=== PATIENT | female | born 1990 | race Caucasian/White ===

== ENCOUNTER 2018-07-02 20:24 | Emergency (ER) | payer MEDICAID ==
--- NOTE | 2018-07-02 21:02 | EDM.PDOC ---
ED HPI GENERAL MEDICAL PROBLEM - General Chief Complaint: Respiratory Problem Stated Complaint: PAIN LEFT CHEST/RIB/BACK, SINUS/COUGH Time Seen by Provider: 07/02/18 20:45 Source of Information: Reports: Patient, Old Records, RN History Limitations: Reports: No Limitations - History of Present Illness INITIAL COMMENTS - FREE TEXT/NARRATIVE: 27 yo smoking female here with a dry cough for over a week, and now some pleuritic L sided chest pain. No fever or SOB. No hx of asthma. Has some sinus congestion. Is taking Sudafed for her sx's. Has not been in to the clinic. Onset: Gradual Onset Date: 06/24/18 Duration: Week(s): (1+), Getting Worse Location: Reports: Face (sinuses), Chest Quality: Reports: Sharp (L chest), Stabbing Severity: Moderate Improves with: Reports: Other (not coughing) Worsens with: Reports: Breathing (deep or coughing) Context: Reports: Other (See HPI) Associated Symptoms: Reports: Chest Pain (L sided, sharp), Cough. 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: Musculoskeletal History: Reports: Back Pain, Chronic Neurological History: Reports: None Psychiatric History: Reports: Depression Endocrine/Metabolic History: Reports: Obesity/BMI 30+ - Infectious Disease History Infectious Disease History: Reports: None - Past Surgical History HEENT Surgical History: Reports: None GI Surgical History: Reports: Cholecystectomy, EGD, Hernia, Abdominal, Other ( See Below) Other GI Surgeries/Procedures: Abd hernia with mesh Endocrine Surgical History: Reports: None Neurological Surgical History: Reports: Discectomy Musculoskeletal Surgical History: Reports: None Social & Family History - Tobacco Use Smoking Status *Q: Never Smoker - Caffeine Use Caffeine Use: Reports: Coffee, Soda - Recreational Drug Use Recreational Drug Use: No ED ROS GENERAL - Review of Systems Review Of Systems: See Below Constitutional: Reports: No Symptoms HEENT: Reports: Rhinitis, Sinus Problem. Denies: Ear Pain, Throat Pain, Throat Swelling Respiratory: Reports: Pleuritic Chest Pain, Cough. Denies: Shortness of Breath , Wheezing, Sputum, Hemoptysis Cardiovascular: Reports: No Symptoms GI/Abdominal: Reports: No Symptoms : Reports: No Symptoms Musculoskeletal: Reports: No Symptoms Skin: Reports: No Symptoms Neurological: Reports: No Symptoms Psychiatric: Reports: No Symptoms ED EXAM, GENERAL - Physical Exam Exam: See Below Exam Limited By: No Limitations General Appearance: Alert, WD/WN, No Apparent Distress Eye Exam: Bilateral Eye: Normal Inspection Ears: Normal External Exam, Normal Canal, Hearing Grossly Normal, Normal TMs Ear Exam: Bilateral Ear: Auricle Normal, Canal Normal, TM normal Nose: Normal Inspection, Normal Mucosa, No Blood Throat/Mouth: Normal Inspection, Normal Lips, Normal Oropharynx, Normal Voice, No Airway Compromise Head: Atraumatic, Normocephalic Neck: Normal Inspection, Non-Tender Respiratory/Chest: No Respiratory Distress, No Accessory Muscle Use, Rhonchi ( faint on right). No: Wheezing Cardiovascular: Regular Rate, Rhythm, No Edema GI/Abdominal: Normal Bowel Sounds, Soft, Non-Tender, No Distention Back Exam: Normal Inspection. No: CVA Tenderness (R), CVA Tenderness (L) Extremities: Normal Inspection, Normal Range of Motion, Non-Tender, No Pedal Edema Neurological: Alert, Oriented, CN II-XII Intact, Normal Cognition, No Motor/ Sensory Deficits Psychiatric: Normal Affect, Normal Mood Skin Exam: Warm, Dry, Intact, Normal Color, No Rash Course - Vital Signs Last Recorded V/S: Last Vital Signs Temp 36.7 C 07/02/18 20:46 Pulse 84 07/02/18 20:46 Resp 16 07/02/18 20:46 BP 119/76 07/02/18 20:46 Pulse Ox 99 07/02/18 20:46 Departure - Departure Time of Disposition: 21:10 Disposition: Home, Self-Care 01 Condition: Fair Clinical Impression: Cough, Bronchitis, Tobacco abuse disorder - Discharge Information *PRESCRIPTION DRUG MONITORING PROGRAM REVIEWED*: No *COPY OF PRESCRIPTION DRUG MONITORING REPORT IN PATIENT ERIBERTO: No Instructions: Steps to Quit Smoking, [id number], Cough, Adult, [id number], Acute Bronchitis, Adult, [id number] Referrals: Maranda Ho CNM [Primary Care Provider] - Additional Instructions: Use azithromycin as directed until gone. Use Robitussin AC as needed for cough. Take ibuprofen or acetaminophen for pain relief. No smoking. Recheck in the clinic early next week. Return here as needed.
== END 2018-07-02 21:19 | disposition home or self-care (01) ==
LOC: JP.ED 20:24
DX: J40 Bronchitis, not specified as acute or chronic (principal); F17.210 Nicotine dependence, cigarettes, uncomplicated
CPT/HCPCS: 99283

== ENCOUNTER 2019-03-05 22:33 | Inpatient (IN) | payer MEDICAID ==
[2019-03-06] MEDS ORDERED: ePHEDrine 50 MG/ML SDV IVPUSH PRN ×2 (00:13)
[2019-03-06] MEDS ORDERED: Sodium Chloride 0.9% 10 ML Syringe FLUSH PRN (00:13)
[2019-03-06] MEDS ORDERED: Lactated Ringers 1,000 ML IV ONE (00:13)
[2019-03-06] MEDS ORDERED: diphenhydrAMINE 50 MG/ML SDV IVPUSH PRN ×2 (00:13)
[2019-03-06] MEDS ORDERED: Naloxone 0.4 MG/ML SDV IVPUSH PRN (00:13)
[2019-03-06] MEDS ORDERED: Calcium Carbonate 500 MG Tab.Chew PO PRN (00:13)
[2019-03-06] MEDS ORDERED: Ondansetron 4 MG/2 ML SDV IV PRN (00:13)
[2019-03-06] MEDS ORDERED: Ropivacaine 200 MG in Premix Bag 1 BAG EPIDUR SCH (00:15)
--- NOTE | 2019-03-06 00:25 | PCM.LDHP ---
L&D History of Present Illness - General Date of Service: 03/06/19 Admit Problem/Dx: Patient Status Order with Admit Dx/Problem 03/06/19 00:13 Patient Status [ADT] Routine Admission Diagnosis/Problem Admission Diagnosis/Problem Source of Information: Patient History Limitations: Reports: No Limitations - Related Data Allergies/Adverse Reactions: Allergies Allergy/AdvReac Type Severity Reaction Status Date / Time No Known Allergies Allergy Verified 07/02/18 20:42 Home Medications: Home Meds Acetaminophen [Tylenol Extra Strength] 1,000 mg PO ASDIRECTED PRN 07/02/18 [ History] Cetirizine HCl [Zyrtec] 10 mg PO DAILY 01/06/19 [History] #103/Iron Fumarate/Fa [ ] 1 tab PO DAILY 01/06/19 [ History] Sertraline [Zoloft] 100 mg PO DAILY 01/06/19 [History] Ursodiol 300 mg PO TID 01/06/19 [History] B6/mg/Turm/May/Anis/Gar/Gin/Sp [Morning Sickless Combo Pack] 1 cap PO DAILY PRN 01/07/19 [History] Docusate Sodium [Stool Softener] 100 mg PO DAILY PRN 03/02/19 [History] Past Medical History HEENT History: Reports: Impaired Vision Cardiovascular History: Reports: Other (See Below) Other Cardiovascular History: PIH Respiratory History: Reports: None Gastrointestinal History: Reports: Cholelithiasis, GERD, Hiatal Hernia, Other ( See Below) Other Gastrointestinal History: cholestasis during current Genitourinary History: Reports: None 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: , 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 Musculoskeletal History: Reports: Back Pain, Chronic Neurological History: Reports: None Psychiatric History: Reports: Anxiety, Depression Endocrine/Metabolic History: Reports: Obesity/BMI 30+, Vitamin D Deficiency Hematologic History: Reports: None Immunologic History: Reports: None Oncologic (Cancer) History: Reports: None Dermatologic History: Reports: None - Infectious Disease History Infectious Disease History: Reports: None - Past Surgical History HEENT Surgical History: Reports: None Cardiovascular Surgical History: Reports: None Respiratory Surgical History: Reports: None GI Surgical History: Reports: Cholecystectomy, EGD, Hernia, Abdominal, Other ( See Below) Other GI Surgeries/Procedures: Abd hernia with mesh Female Surgical History: Reports: None Endocrine Surgical History: Reports: None Neurological Surgical History: Reports: Discectomy Musculoskeletal Surgical History: Reports: Other (See Below) Other Musculoskeletal Surgeries/Procedures:: discectomy L4-S1 Social & Family History - Family History Cardiac: Reports: Afib Respiratory: Reports: Asthma, Other (See Below) Other Respiratory Family Hisory: pulmonary disease Psychiatric: Reports: Bipolar, Depression, Other (See Below) Other Psychiatric Family History: addiction Endocrine/Metabolic: Reports: Diabetes, type II - Tobacco Use Smoking Status *Q: Current Every Day Smoker Years of Tobacco use: 15 Packs/Tins Daily: 0.5 Used Tobacco, but Quit: No Second Hand Smoke Exposure: No - Caffeine Use Caffeine Use: Reports: Coffee - Recreational Drug Use Recreational Drug Use: No H&P Review of Systems - Review of Systems: Review Of Systems: See Below General: Reports: No Symptoms HEENT: Reports: No Symptoms Pulmonary: Reports: No Symptoms Cardiovascular: Reports: No Symptoms Gastrointestinal: Reports: No Symptoms Genitourinary: Reports: No Symptoms Musculoskeletal: Reports: No Symptoms Skin: Reports: Other (itching) Psychiatric: Reports: No Symptoms Neurological: Reports: No Symptoms Hematologic/Lymphatic: Reports: No Symptoms Immunologic: Reports: No Symptoms L&D Exam - Exam Exam: See Below - Vital Signs Vital Signs: Last Vital Signs Temp 36.8 C 03/05/19 22:46 Pulse 100 03/05/19 22:46 Resp 16 03/05/19 22:46 BP 119/72 03/05/19 22:46 Pulse Ox Weight: 92.079 kg - OB Specific Contraction Duration (sec): 60-80 Contraction Frequency (min): x2 Contraction Intensity: Mild Movement: Active Heart Tones: Present Heart Rate (FHR) Variability: Moderate (6-25 bmp) Presentation: Vertex - Castillo Score Castillo Score Cervix Position: Posterior Castillo Score Consistency: Soft Castillo Score Effacement: 51-70% Castillo Score Dilation: 1-2 cm Castillo Score Infant's Station: -2 Castillo Score Total: 6 - Exam General: Alert, Oriented HEENT: PERRLA, Conjunctiva Clear, EACs Clear, EOMI, Hearing Intact, Mucosa Moist & [place], Nares Patent, Normal Nasal Septum, Posterior Pharynx Clear, TMs Clear Neck: Supple, Trachea Midline Lungs: Clear to Auscultation, Normal Respiratory Effort Cardiovascular: Regular Rate, Regular Rhythm GI/Abdominal Exam: Normal Bowel Sounds, Soft, Non-Tender, No Organomegaly, No Distention, No Abnormal Bruit, No Mass, Pelvis Stable Rectal Exam: Normal Exam, Normal Rectal Tone Genitourinary: Normal external exam, Normal bimanual exam, Normal speculum exam Back Exam: Normal Inspection, Full Range of Motion Extremities: Normal Inspection, Normal Range of Motion, Non-Tender, No Pedal Edema, Normal Capillary Refill Skin: Warm, Dry, Intact Neurological: Cranial Nerves Intact, Reflexes Equal Bilateral Psychiatric: Alert, Normal Affect, Normal Mood - Patient Data Lab Results Last 24 hrs: Laboratory Results - last 24 hr 03/05/19 03/05/19 03/05/19 Range/Units 22:39 22:39 23:11 WBC (4.5-11.0) K/uL RBC (3.30-5.50) M/uL Hgb (12.0-15.0) g/dL Hct (36.0-48.0) % MCV (80-98) fL MCH (27-31) pg MCHC (32-36) % Plt Count (150-400) K/uL Neut % (Auto) (36-66) % Lymph % (Auto) (24-44) % [place] % (Auto) (2-6) % Eos % (Auto) (2-4) % Baso % (Auto) (0-1) % Sodium (140-148) mmol/L Potassium (3.6-5.2) mmol/L Chloride (100-108) mmol/L Carbon Dioxide (21-32) mmol/L Anion Gap (5.0-14.0) mmol/L BUN (7-18) mg/dL Creatinine (0.6-1.0) mg/dL Est Cr Clr Drug Dosing mL/min Estimated GFR (MDRD) (>60) Glucose (74-106) mg/dL Calcium (8.5-10.1) mg/dL Total Bilirubin (0.2-1.0) mg/dL AST (15-37) U/L ALT (12-78) U/L Alkaline Phosphatase (46-116) U/L Total Protein (6.4-8.2) g/dL Albumin (3.4-5.0) g/dL Globulin (2.3-3.5) g/dL Albumin/Globulin Ratio (1.2-2.2) Urine Color [place] A (YELLOW) Urine Appearance Clear (CLEAR) Urine pH 7.0 (5.0-8.0) Ur Specific [place] 1.025 (1.008-1.030) Urine Protein 30 H (NEGATIVE) mg/dL Urine Glucose (UA) Negative (NEGATIVE) mg/dL Urine Ketones Trace H (NEGATIVE) mg/dL Urine Occult Blood Negative (NEGATIVE) Urine Nitrite Negative (NEGATIVE) Urine Bilirubin Small H (NEGATIVE) Urine Urobilinogen 2.0 H (0.2-1.0) EU/dL Ur Leukocyte Esterase Negative (NEGATIVE) Urine RBC 0-5 (0-5) Urine WBC 0-5 (0-5) Ur Epithelial Cells Few Amorphous Sediment Few Urine Bacteria Few Urine Mucus Many Membrane Rupture Positive H (NEGATIVE) Urine Opiates Screen Negative (NEGATIVE) Ur Oxycodone Screen Negative (NEGATIVE) Urine Methadone Screen Negative (NEGATIVE) Ur Propoxyphene Screen Negative (NEGATIVE) Ur Barbiturates Screen Negative (NEGATIVE) Ur Tricyclics Screen Negative (NEGATIVE) Ur Phencyclidine Scrn Negative (NEGATIVE) Ur Amphetamine Screen Negative (NEGATIVE) U Methamphetamines Scrn Negative (NEGATIVE) Urine MDMA Screen Negative (NEGATIVE) U Benzodiazepines Scrn Negative (NEGATIVE) U Cocaine Metab Screen Negative (NEGATIVE) U Marijuana (THC) Screen Negative (NEGATIVE) 03/05/19 03/05/19 Range/Units 23:40 23:40 WBC 10.5 (4.5-11.0) K/uL RBC 3.62 (3.30-5.50) M/uL Hgb 11.2 L (12.0-15.0) g/dL Hct 33.7 L (36.0-48.0) % MCV 93 (80-98) fL MCH 31 (27-31) pg MCHC 33 (32-36) % Plt Count 186 (150-400) K/uL Neut % (Auto) 74 H (36-66) % Lymph % (Auto) 18 L (24-44) % [place] % (Auto) 7 H (2-6) % Eos % (Auto) 1 L (2-4) % Baso % (Auto) 0 (0-1) % Sodium 138 L (140-148) mmol/L Potassium 3.7 (3.6-5.2) mmol/L Chloride 103 (100-108) mmol/L Carbon Dioxide 24 (21-32) mmol/L Anion Gap 14.7 H (5.0-14.0) mmol/L BUN 10 (7-18) mg/dL Creatinine 0.7 (0.6-1.0) mg/dL Est Cr Clr Drug Dosing 110.01 mL/min Estimated GFR (MDRD) > 60 (>60) Glucose 112 H (74-106) mg/dL Calcium 9.1 (8.5-10.1) mg/dL Total Bilirubin 0.6 (0.2-1.0) mg/dL AST 15 (15-37) U/L ALT 16 (12-78) U/L Alkaline Phosphatase 173 H (46-116) U/L Total Protein 6.6 (6.4-8.2) g/dL Albumin 2.5 L (3.4-5.0) g/dL Globulin 4.1 H (2.3-3.5) g/dL Albumin/Globulin Ratio 0.6 L (1.2-2.2) Urine Color (YELLOW) Urine Appearance (CLEAR) Urine pH (5.0-8.0) Ur Specific [place] (1.008-1.030) Urine Protein (NEGATIVE) mg/dL Urine Glucose (UA) (NEGATIVE) mg/dL Urine Ketones (NEGATIVE) mg/dL Urine Occult Blood (NEGATIVE) Urine Nitrite (NEGATIVE) Urine Bilirubin (NEGATIVE) Urine Urobilinogen (0.2-1.0) EU/dL Ur Leukocyte Esterase (NEGATIVE) Urine RBC (0-5) Urine WBC (0-5) Ur Epithelial Cells Amorphous Sediment Urine Bacteria Urine Mucus Membrane Rupture (NEGATIVE) Urine Opiates Screen (NEGATIVE) Ur Oxycodone Screen (NEGATIVE) Urine Methadone Screen (NEGATIVE) Ur Propoxyphene Screen (NEGATIVE) Ur Barbiturates Screen (NEGATIVE) Ur Tricyclics Screen (NEGATIVE) Ur Phencyclidine Scrn (NEGATIVE) Ur Amphetamine Screen (NEGATIVE) U Methamphetamines Scrn (NEGATIVE) Urine MDMA Screen (NEGATIVE) U Benzodiazepines Scrn (NEGATIVE) U Cocaine Metab Screen (NEGATIVE) U Marijuana (THC) Screen (NEGATIVE) Result Diagrams: 03/05/19 23:40 03/05/19 23:40 - Problem List (1) High-risk SNOMED Code(s): 48860323 ICD Code: O09.90 - SUPERVISION OF HIGH RISK , UNSP, UNSP TRIMESTER Status: Acute Priority: High Current Visit: Yes Qualifiers: Trimester: third trimester Qualified Code(s): O09.93 - Supervision of high risk , unspecified, third trimester (2) Meconium in amniotic fluid SNOMED Code(s): 499588205 ICD Code: P96.83 - MECONIUM STAINING Status: Acute Priority: High Current Visit: Yes (3) SROM (spontaneous rupture of membranes) SNOMED Code(s): 975261920 ICD Code: ZZA6172 - Status: Acute Current Visit: Yes (4) Tobacco abuse disorder SNOMED Code(s): 708687904 ICD Code: Z72.0 - TOBACCO USE Status: Acute Current Visit: No (5) SNOMED Code(s): 15413549 ICD Code: Z34.90 - ENCNTR FOR SUPRVSN OF NORMAL , UNSP, UNSP TRIMESTER Status: Acute Current Visit: No Qualifiers: Weeks of gestation: 37 weeks Qualified Code(s): Z3A.37 - 37 weeks gestation of (6) Intrahepatic cholestasis of in third trimester SNOMED Code(s): 298049139, 317426079 ICD Code: O26.613 - LIVER AND BILIARY TRACT DISORD IN , THIRD TRIMESTER; K83.1 - OBSTRUCTION OF BILE DUCT Status: Acute Priority: High Current Visit: No Problem List Initiated/Reviewed/Updated: Yes Orders Last 24hrs: Active Orders 24 hr Category Date Time Status Patient Status [ADT] Routine ADT 03/06/19 00:13 Ordered Ambulate [RC] PER UNIT ROUTINE Care 03/06/19 00:13 Ordered Communication Order [RC] ASDIRECTED Care 03/06/19 00:13 Ordered Communication Order [RC] ASDIRECTED Care 03/06/19 00:14 Ordered Communication Order [RC] ROUTINE Care 03/06/19 00:14 Ordered Communication Order [RC] ROUTINE Care 03/06/19 00:14 Ordered Communication Order [RC] ROUTINE Care 03/06/19 00:14 Ordered Heart Tones [RC] PER UNIT ROUTINE Care 03/06/19 00:13 Ordered Non Stress Test [RC] Click to Edit Care 03/06/19 00:14 Ordered Insert Urinary Catheter [OM.PC] ASDIRECTED Care 03/06/19 00:15 Ordered Local Anesthetic Infusion Pump [RC] ASDIRECTED Care 03/06/19 00:14 Ordered May Shower [RC] ASDIRECTED Care 03/06/19 00:13 Ordered Notify Provider Vital Signs [RC] PRN Care 03/06/19 00:13 Ordered Notify Provider [RC] PRN Care 03/06/19 00:13 Ordered OB Check [OM.PC] Click to Edit Care 03/05/19 22:38 Ordered Oxygen Therapy [RC] ASDIRECTED Care 03/06/19 00:14 Ordered PCEA Epidural [RC] ASDIRECTED Care 03/06/19 00:14 Ordered PCEA Epidural [RC] ASDIRECTED Care 03/06/19 00:14 Ordered PCEA Epidural [RC] ASDIRECTED Care 03/06/19 00:14 Ordered Peripheral IV Care [RC] . DIRECTED Care 03/06/19 00:14 Ordered Pulse Oximetry [RC] ASDIRECTED Care 03/06/19 00:14 Ordered Up ad Latha [RC] ASDIRECTED Care 03/06/19 00:13 Ordered Urinary Catheter Assessment [RC] ASDIRECTED Care 03/06/19 00:14 Ordered VTE/DVT Education [RC] DAILY Care 03/06/19 00:13 Ordered Vital Signs [RC] PER UNIT ROUTINE Care 03/06/19 00:13 Ordered Vital Signs [RC] PER UNIT ROUTINE Care 03/06/19 00:14 Ordered Regular Diet [DIET] Diet 03/06/19 Breakfast Ordered LACTATE DEHYDROGENASE,LDH [CHEM] Routine Lab 03/05/19 23:32 Ordered Calcium Carbonate [Tums] Med 03/06/19 00:13 Ordered 1,000 mg PO Q2HR PRN Lactated Ringers [Ringers, Lactated] 1,000 ml Med 03/06/19 00:13 Ordered IV .BOLUS Naloxone [Narcan] Med 03/06/19 00:13 Ordered 0.1 mg IVPUSH ASDIRECTED PRN Ondansetron [Zofran] Med 03/06/19 00:13 Ordered 4 mg IV Q4H PRN Ropivacaine [Naropin 0.2%] 200 mg Med 03/06/19 00:15 Ordered Premix Bag 1 bag EPIDUR ASDIRECTED Sodium Chloride 0.9% [Saline Flush] Med 03/06/19 00:13 Ordered 10 ml FLUSH ASDIRECTED PRN diphenhydrAMINE [Benadryl] Med 03/06/19 00:13 Ordered 25 mg IVPUSH Q6H PRN diphenhydrAMINE [Benadryl] Med 03/06/19 00:13 Ordered 50 mg IVPUSH Q6H PRN ePHEDrine [ePHEDrine sulfate] Med 03/06/19 00:13 Ordered 10 mg IVPUSH ASDIRECTED PRN ePHEDrine [ePHEDrine sulfate] Med 03/06/19 00:13 Ordered 10 mg IVPUSH ASDIRECTED PRN DVT/VTE Prophylaxis Reflex [OM.PC] Routine Oth 03/06/19 00:13 Ordered Epidural Catheter Management [OM.PC] Routine Oth 03/06/19 00:14 Ordered Epidural Catheter Management [OM.PC] Urgent Oth 03/06/19 00:14 Ordered Peripheral IV Insertion Pediatric [OM.PC] Routine Oth 03/06/19 00:14 Ordered Saline Lock Insert [OM.PC] Routine Oth 03/06/19 00:13 Ordered Resuscitation Status Routine Resus Stat 03/06/19 00:13 Ordered Medication Orders Calcium Carbonate/Glycine (Tums) 1,000 mg PO Q2HR PRN PRN Reason: Indigestion Diphenhydramine HCl (Benadryl) 25 mg IVPUSH Q6H PRN PRN Reason: Itching Diphenhydramine HCl (Benadryl) 50 mg IVPUSH Q6H PRN PRN Reason: Itching Ephedrine Sulfate (Ephedrine Sulfate) 10 mg IVPUSH ASDIRECTED PRN PRN Reason: Hypotension Ephedrine Sulfate (Ephedrine Sulfate) 10 mg IVPUSH ASDIRECTED PRN PRN Reason: Hypotension Lactated Ringer's (Ringers, Lactated) 1,000 mls @ 999 mls/hr IV .BOLUS ONE Stop: 03/06/19 01:13 Ropivacaine 200 mg/ Premix 100 mls @ 0 mls/hr EPIDUR ASDIRECTED DANIEL Naloxone HCl (Narcan) 0.1 mg IVPUSH ASDIRECTED PRN PRN Reason: Oversedation Ondansetron HCl (Zofran) 4 mg IV Q4H PRN PRN Reason: Nausea/Vomiting Sodium Chloride (Saline Flush) 10 ml FLUSH ASDIRECTED PRN PRN Reason: Keep Vein Open Assessment/Plan Comment:: 03/06/2019 28 yo came in late yesterday evening after suspected SROM at home She now states she had green discharge mucous and more yesterday also but does not believe she was ruptured then She is 37 1/7 gestational weeks today Amnisure was positive and fluid was meconium stained Contractions irregular and sporadic SVE-2/70/-2-posterior FHTs category one She has been being treated and watched for ICP during this She has a history of ICP in previous pregnancies Bile salts have been stable-Mondays was 9.0 AST-15, ALT-16 Other labs-O positive, GBS negative, Hep B neg, Hep C neg, HIV neg, RPR nonreactive Plan- Will continue to monitor for active labor Will continue to monitor FHTs If no active labor by 0500 will initiate pitocin per protocol Will start antibiotic prophylaxis since possible PROM Once in active labor pattern may have an epidural for pain management per patient request Plan and anticipate a vaginal delivery
[2019-03-06] MEDS ORDERED: Penicillin G Potassium 5 MILLUNITS in Sodium Chloride 0.9% 50 ML IV ONE (00:30)
[2019-03-06] MEDS: Penicillin G Potassium 2.5 MILLUNITS in Sodium Chloride 0.9% 50 ML IV SCH ×5 (04:38→20:35)
--- NOTE | 2019-03-06 08:03 | PCM.PNLD ---
Labor Progress Note - VS & Meds Vital Signs: Last Vital Signs Temp 36.3 C 03/06/19 06:20 Pulse 81 03/06/19 06:58 Resp 16 03/06/19 06:58 BP 114/67 03/06/19 06:58 Pulse Ox 95 03/06/19 06:58 Active Medications: Current Medications Calcium Carbonate/Glycine (Tums) 1,000 mg PO Q2H PRN PRN Reason: Indigestion Diphenhydramine HCl (Benadryl) 25 mg IVPUSH Q6H PRN PRN Reason: Itching Diphenhydramine HCl (Benadryl) 50 mg IVPUSH Q6H PRN PRN Reason: Itching Ephedrine Sulfate (Ephedrine Sulfate) 10 mg IVPUSH ASDIRECTED PRN PRN Reason: Hypotension Ropivacaine 200 mg/ Premix 100 mls @ 0 mls/hr EPIDUR ASDIRECTED DANIEL Oxytocin/Sodium Chloride (Pitocin In Ns 20 Units/1,000 Ml) 20 unit in 1,000 mls @ 6 mls/hr IV TITRATE DANIEL; Protocol Last Titration: 03/06/19 07:47 Dose: 9 mls/hr Penicillin G Potassium 2.5 (millunits/ Sodium Chloride) 50 mls @ 100 mls/hr IV Q4H DANIEL Last Admin: 03/06/19 04:38 Dose: 100 mls/hr Naloxone HCl (Narcan) 0.1 mg IVPUSH ASDIRECTED PRN PRN Reason: Oversedation Ondansetron HCl (Zofran) 4 mg IV Q4H PRN PRN Reason: Nausea/Vomiting Sodium Chloride (Saline Flush) 10 ml FLUSH ASDIRECTED PRN PRN Reason: Keep Vein Open Discontinued Medications Lactated Ringer's (Ringers, Lactated) 1,000 mls @ 999 mls/hr IV .BOLUS ONE Stop: 03/06/19 01:13 Last Admin: 03/06/19 00:20 Dose: 999 mls/hr Penicillin G Potassium 5 (millunits/ Sodium Chloride) 50 mls @ 100 mls/hr IV ONETIME ONE Stop: 03/06/19 00:59 Last Admin: 03/06/19 01:20 Dose: 100 mls/hr - Uterine Contractions Uterine Monitoring Mode: External [place] Contraction Frequency (min): 3.5-6 Contraction Duration (sec): 40-120 Uterine Resting Tone: Soft - Monitoring Monitor Mode: External Ultrasound Heart Rate (FHR) Baseline: 120 Heart Rate (FHR) Variability: Moderate (6-25 bmp) Accelerations: Present, 15x15 Decelerations: None Strip Review: Category I - Vaginal Exam Dilation (cm): 4 Effacement (Percent): 70 Station: -2 Cervical Position: Posterior Sterile Vaginal Exam Performed By: Francesca Eddy - Labor Progress (Free Text) Labor Progress: 03/06/19 Patient slept well through the night. Pitocin was started this am and is currently at 2 mu with irregular contractions that palpate mild to moderate. SVE now is the same as 0445 at /-2 and posterior cervix. The cervix is nice and soft. She continues to have moderate thick meconium fluid leaking. FHT's baseline 120 with moderate variability and accelerations with no decelerations. Category 1 tracing. Good movement. I have reviewed all of her lab work. Arlette was a planned induction of labor tomorrow for intrahepatic cholestasis in . There is question as to if she had been ruptured since before last evening as she states she leaked mucous that was sometimes greenish through out the week. Assessment: at 37 2/7 with SROM Category 1 tracing No labor established, patient not feeling contractions ICP of Meconium stained fluid, moderate thickness Plan: Plan is to increase Pitocin slowly today, I plan on 2 mu every 45 minutes, may be adjusted based off of assessment Continuous monitoring, notify provider immediately of any decelerations or minimal variability Frequent position changes, ball, walking in oneal A conversation was had with patient about her high risk diagnosis of ICP in and the thick meconium fluid and needing to watch baby closely for s/ s of distress. She understands and is aware that if the baby does not tolerate this induction of labor that there is a possibility of section, the patient understands and all questions are answered.
--- NOTE | 2019-03-06 10:32 | PCM.PNLD ---
Labor Progress Note - VS & Meds Vital Signs: Last Vital Signs Temp 36.3 C 03/06/19 09:00 Pulse 90 03/06/19 09:00 Resp 16 03/06/19 09:00 BP 104/61 03/06/19 09:00 Pulse Ox 96 03/06/19 09:00 Active Medications: Current Medications Calcium Carbonate/Glycine (Tums) 1,000 mg PO Q2H PRN PRN Reason: Indigestion Diphenhydramine HCl (Benadryl) 25 mg IVPUSH Q6H PRN PRN Reason: Itching Diphenhydramine HCl (Benadryl) 50 mg IVPUSH Q6H PRN PRN Reason: Itching Ephedrine Sulfate (Ephedrine Sulfate) 10 mg IVPUSH ASDIRECTED PRN PRN Reason: Hypotension Ropivacaine 200 mg/ Premix 100 mls @ 0 mls/hr EPIDUR ASDIRECTED DANIEL Oxytocin/Sodium Chloride (Pitocin In Ns 20 Units/1,000 Ml) 20 unit in 1,000 mls @ 6 mls/hr IV TITRATE DANIEL; Protocol Last Titration: 03/06/19 10:17 Dose: 12 mls/hr Penicillin G Potassium 2.5 (millunits/ Sodium Chloride) 50 mls @ 100 mls/hr IV Q4H DANIEL Last Admin: 03/06/19 08:55 Dose: 100 mls/hr Naloxone HCl (Narcan) 0.1 mg IVPUSH ASDIRECTED PRN PRN Reason: Oversedation Ondansetron HCl (Zofran) 4 mg IV Q4H PRN PRN Reason: Nausea/Vomiting Sodium Chloride (Saline Flush) 10 ml FLUSH ASDIRECTED PRN PRN Reason: Keep Vein Open Discontinued Medications Lactated Ringer's (Ringers, Lactated) 1,000 mls @ 999 mls/hr IV .BOLUS ONE Stop: 03/06/19 01:13 Last Admin: 03/06/19 00:20 Dose: 999 mls/hr Penicillin G Potassium 5 (millunits/ Sodium Chloride) 50 mls @ 100 mls/hr IV ONETIME ONE Stop: 03/06/19 00:59 Last Admin: 03/06/19 01:20 Dose: 100 mls/hr - Uterine Contractions Uterine Monitoring Mode: External [place] (difficulty picking contractions up, pt starting to feel them) Contraction Frequency (min): irregular Contraction Duration (sec): 40-110 Contraction Intensity: Mild Uterine Resting Tone: Soft - Monitoring Monitor Mode: External Ultrasound Heart Rate (FHR) Baseline: 120 Heart Rate (FHR) Variability: Moderate (6-25 bmp) Accelerations: Present, 15x15 Decelerations: None Strip Review: Category I - Vaginal Exam Dilation (cm): 4.5-5 Effacement (Percent): 80 Station: -2 Cervical Position: Posterior Sterile Vaginal Exam Performed By: Aislinn Cooper Vaginal Exam Comment: Green Meconium noted - Labor Progress (Free Text) Labor Progress: 03/06/19 Patient has progressed slightly to 4.5-5 cm/80/-2. We will continue to increase Pitocin as needed. Encouraging her to walk now. If we continue to have poor reading of her contraction pattern we will consider an IUPC. Pt tolerating contractions without pain still, she does feel them more. Plan is for epidural once in active labor.
--- NOTE | 2019-03-06 13:12 | PCM.PNLD ---
Labor Progress Note - VS & Meds Vital Signs: Last Vital Signs Temp 36.3 C 03/06/19 09:00 Pulse 90 03/06/19 09:00 Resp 16 03/06/19 09:00 BP 104/61 03/06/19 09:00 Pulse Ox 96 03/06/19 09:00 Active Medications: Current Medications Calcium Carbonate/Glycine (Tums) 1,000 mg PO Q2H PRN PRN Reason: Indigestion Diphenhydramine HCl (Benadryl) 25 mg IVPUSH Q6H PRN PRN Reason: Itching Diphenhydramine HCl (Benadryl) 50 mg IVPUSH Q6H PRN PRN Reason: Itching Ephedrine Sulfate (Ephedrine Sulfate) 10 mg IVPUSH ASDIRECTED PRN PRN Reason: Hypotension Ropivacaine 200 mg/ Premix 100 mls @ 0 mls/hr EPIDUR ASDIRECTED DANIEL Oxytocin/Sodium Chloride (Pitocin In Ns 20 Units/1,000 Ml) 20 unit in 1,000 mls @ 6 mls/hr IV TITRATE DANIEL; Protocol Last Titration: 03/06/19 12:58 Dose: 8 munits/min, 24 mls/hr Penicillin G Potassium 2.5 (millunits/ Sodium Chloride) 50 mls @ 100 mls/hr IV Q4H DANIEL Last Admin: 03/06/19 08:55 Dose: 100 mls/hr Naloxone HCl (Narcan) 0.1 mg IVPUSH ASDIRECTED PRN PRN Reason: Oversedation Ondansetron HCl (Zofran) 4 mg IV Q4H PRN PRN Reason: Nausea/Vomiting Sodium Chloride (Saline Flush) 10 ml FLUSH ASDIRECTED PRN PRN Reason: Keep Vein Open Discontinued Medications Lactated Ringer's (Ringers, Lactated) 1,000 mls @ 999 mls/hr IV .BOLUS ONE Stop: 03/06/19 01:13 Last Admin: 03/06/19 00:20 Dose: 999 mls/hr Penicillin G Potassium 5 (millunits/ Sodium Chloride) 50 mls @ 100 mls/hr IV ONETIME ONE Stop: 03/06/19 00:59 Last Admin: 03/06/19 01:20 Dose: 100 mls/hr - Uterine Contractions Uterine Monitoring Mode: External [place] Contraction Frequency (min): 5-8 Contraction Duration (sec): 50-120 Contraction Intensity: Mild Uterine Resting Tone: Soft - Monitoring Monitor Mode: External Ultrasound Heart Rate (FHR) Baseline: 120 Heart Rate (FHR) Variability: Moderate (6-25 bmp) Accelerations: Present, 15x15 Decelerations: None Strip Review: Category I - Vaginal Exam Dilation (cm): 4.5-5 Effacement (Percent): 80 Station: -2 Cervical Position: Posterior Sterile Vaginal Exam Performed By: Aislinn Cooper Vaginal Exam Comment: Green Meconium noted - Labor Progress (Free Text) Labor Progress: 03/06/19 Cervix remains unchanged from check around 1030 am. Contractions are difficult to picker with the toco and given we have not had cervical change despite increasing pitocin, an IUPC was inserted. Informed consent with patient, she agrees to this procedure. Given the category 1 tracing and the lack of contractions we will increase pitocin 2 mu every 30 minutes again and will reassess each time. The first few contractions on IUPC measure 10-15 mvu's each. Goal is to have MVU's over 200 in a 10 minute period of time. Meconium stained fluid with white particulate matter is seen.
[2019-03-06] MEDS ORDERED: Lactated Ringers 1,000 ML IV SCH (16:00)
[2019-03-06] MEDS ORDERED: Ropivacaine 100 ML ONE (16:45)
--- NOTE | 2019-03-06 17:28 | PCM.PNLD ---
Labor Progress Note - VS & Meds Vital Signs: Last Vital Signs Temp 36.1 C 03/06/19 12:40 Pulse 67 03/06/19 12:40 Resp 16 03/06/19 12:40 BP 118/66 03/06/19 12:40 Pulse Ox 93 L 03/06/19 12:40 Active Medications: Current Medications Calcium Carbonate/Glycine (Tums) 1,000 mg PO Q2H PRN PRN Reason: Indigestion Diphenhydramine HCl (Benadryl) 25 mg IVPUSH Q6H PRN PRN Reason: Itching Diphenhydramine HCl (Benadryl) 50 mg IVPUSH Q6H PRN PRN Reason: Itching Ephedrine Sulfate (Ephedrine Sulfate) 10 mg IVPUSH ASDIRECTED PRN PRN Reason: Hypotension Ropivacaine 200 mg/ Premix 100 mls @ 0 mls/hr EPIDUR ASDIRECTED DANIEL Oxytocin/Sodium Chloride (Pitocin In Ns 20 Units/1,000 Ml) 20 unit in 1,000 mls @ 6 mls/hr IV TITRATE DANIEL; Protocol Last Titration: 03/06/19 16:41 Dose: 42 mls/hr Penicillin G Potassium 2.5 (millunits/ Sodium Chloride) 50 mls @ 100 mls/hr IV Q4H DANIEL Last Admin: 03/06/19 16:51 Dose: 100 mls/hr Lactated Ringer's (Ringers, Lactated) 1,000 mls @ 125 mls/hr IV ASDIRECTED DANIEL Last Admin: 03/06/19 16:02 Dose: 125 mls/hr Naloxone HCl (Narcan) 0.1 mg IVPUSH ASDIRECTED PRN PRN Reason: Oversedation Ondansetron HCl (Zofran) 4 mg IV Q4H PRN PRN Reason: Nausea/Vomiting Last Admin: 03/06/19 17:13 Dose: 4 mg Sodium Chloride (Saline Flush) 10 ml FLUSH ASDIRECTED PRN PRN Reason: Keep Vein Open Discontinued Medications Lactated Ringer's (Ringers, Lactated) 1,000 mls @ 999 mls/hr IV .BOLUS ONE Stop: 03/06/19 01:13 Last Admin: 03/06/19 00:20 Dose: 999 mls/hr Penicillin G Potassium 5 (millunits/ Sodium Chloride) 50 mls @ 100 mls/hr IV ONETIME ONE Stop: 03/06/19 00:59 Last Admin: 03/06/19 01:20 Dose: 100 mls/hr Ropivacaine (Naropin 0.2%) Confirm Administered Dose 100 mls @ as directed .ROUTE .STK-MED ONE Stop: 03/06/19 16:46 - Uterine Contractions Uterine Monitoring Mode: IUPC Contraction Frequency (min): 2-3.5 Contraction Duration (sec): 60-120 Contraction Intensity: Moderate to Strong Uterine Resting Tone: Soft - Monitoring Monitor Mode: External Ultrasound Heart Rate (FHR) Baseline: 120 Heart Rate (FHR) Variability: Moderate (6-25 bmp) Accelerations: Present, 15x15 Decelerations: None Strip Review: Category I - Vaginal Exam Dilation (cm): 4.5-5 Effacement (Percent): 80 Station: -2 Cervical Position: Posterior Sterile Vaginal Exam Performed By: Aislinn Cooper Vaginal Exam Comment: Green Meconium noted - Labor Progress (Free Text) Labor Progress: 03/06/19 Current Pitocin at 14 mu/min. Patient comfortable with epidural in place. SVE after epidural was placed was 6/100/-2. Continue category 1 tracing. Contractions have picked up with IUPC in place reading around 140 MVU's in 10 min. Continue to monitor and anticipate .
--- NOTE | 2019-03-06 17:32 | ANES ---
DATE OF SERVICE: 03/05/2019 INDICATION: I was consulted to assess the patient for labor epidural. Upon arrival, I found a 28-year-old female, Arlette Fernandez. Arlette is full-term gestation. Upon discussing with her, her medical history as well as reviewing lab work, found no contraindication to labor epidural. Reviewed the risks and benefits of the procedure. The patient was okay and consent was received. TECHNIQUE: I had her seated at the edge of the bed. Betadine prep x3 to lumbar region. Sterile drape was placed, 1% lidocaine skin wheal as well as deep at the L3-L4 region. I was unable to access loss of resistance due to bony structure. I repositioned to the L2-L3, was able to find loss of resistance. Negative CSF, negative heme, negative paresthesia. I placed a silicone catheter to 13 cm. Needle was removed. The drape was removed. The catheter was secured and I dosed a test dose of 3 mL of 1.5% lidocaine, 1:200,000 epinephrine. Catheter was then secured to her back, placed her in a supine position, dosed her with 12 mL of 0.2% ropivacaine, I began infusion of 12 mL/h due to the fact that there were negative sequelae. She tolerated the procedure quite well. Please refer to nurse's notes for vital signs and neuro status, which were unchanged and within normal limits. Melvin Ortega CRNA /[id number]
[2019-03-06] MEDS ORDERED: Lanolin 100% Cream 40 GM Tube TOP PRN (18:50)
[2019-03-06] MEDS ORDERED: Docusate Sodium 100 MG Cap PO PRN (18:50)
[2019-03-06] MEDS ORDERED: Acetaminophen 325 MG Tab, 50 Tab Bulk Bottle PO PRN (18:54)
[2019-03-06] MEDS ORDERED: Ibuprofen 200 MG Tab, 24 Tab Bulk Bottle PO PRN (18:54)
--- NOTE | 2019-03-06 19:01 | PCM.DEL ---
L & D Note - General Info Date of Service: 03/06/19 Mother's Due Date: 03/25/19 - Delivery Note Labor: Induced by Oxytocin Delivery Outcome: Livebirth Delivery Method: Spontaneous Vaginal Delivery-Single Infant Delivery Mode: Spontaneous Presentation: Right Occiput Anterior (ANNALISE) Nuchal Cord: None Anesthesia Type: None Amniotic Fluid Description: Meconium Stained Episiotomy Type: None Laceration: None Placenta: Intact, Spontaneous Cord: 3 Vessels Estimated Blood Loss: 200 Resuscitation Needed: No : Stimulated, Warmed Provider: Aislinn Cooper Score 1 min: 9 Score 5 min: 9 Second Stage Interventions: Reports: Second Nurse Assessed Progress of Descent, Second Nurse Reviewed Contraction Pattern, Second Nurse Reviewed Heart Tones, Encouragement Given, Pushing Effectively, Pushing, Knee Chest Position, Pushing, Stirrups/Leg Supports Delivery Comments (Free Text/Narrative):: 03/06/19 28 yo had a at 1826 at 37 2/7 weeks gestation under epidural anesthesia. Her labor was induced after prelabor ROM with meconium stained fluid. She progressed slowly in the latent phase but once in the active phase she progressed nicely. Once complete she had recurrent variable decelerations with good variability and return to baseline. We decreased the pitocin by half and gave a fluid bolus due to the variables. Baby girl delivered in ANNALISE position with no nuchal cord. Cord clamping delayed for 2 min, baby was placed on mothers chest immediately after and then was brought to the warmer after a few minutes for extra stimulation which baby responded to immediately. The placenta delivered spontaneously intact with 3 vessel cord. Perineum, cervix , and vagina intact without tears. Apgars 9,9. Weight 8 lb. FF, Pitocin given in the third stage, bleeding light, EBL 200 ml. Stages: 1- 6245-3562 2- 8786-1116 3- 5445-8130 Induction Criteria - Induction Gestational Age >/= 39 wks: No Medical Indication: Prelabor ROM Estimated Pelvis: Reports: Adequate Reassuring Monitoring Strip: Yes Absence of Tachy Systole: Yes - Augmentation Estimated Pelvis: Reports: Adequate Weight Estimated:: Reports: AGA Estimated Weight if LGA: 3.175 kg Reassuring Monitoring Strip: Yes Absence of Tachy Systole: Yes - General Info Date of Service: 03/06/19 Functional Status: Reports: Pain Controlled - Review of Systems General: Reports: No Symptoms HEENT: Reports: No Symptoms Pulmonary: Reports: No Symptoms Cardiovascular: Reports: No Symptoms Gastrointestinal: Reports: No Symptoms Genitourinary: Reports: No Symptoms Musculoskeletal: Reports: No Symptoms Skin: Reports: No Symptoms Neurological: Reports: No Symptoms Psychiatric: Reports: No Symptoms - Patient Data Vitals - Most Recent: Last Vital Signs Temp 36.1 C 03/06/19 12:40 Pulse 123 H 03/06/19 16:35 Resp 16 03/06/19 16:35 BP 124/70 03/06/19 16:35 Pulse Ox 98 03/06/19 16:35 Weight - Most Recent: 92.079 kg I&O - Last 24 Hours: Intake & Output 03/06/19 03/06/19 03/06/19 06:59 14:59 22:59 Intake Total 1075 1000 Balance 1075 1000 Lab Results Last 24 Hours: Laboratory Results - last 24 hr 03/05/19 03/05/19 03/05/19 Range/Units 22:39 22:39 23:11 WBC (4.5-11.0) K/uL RBC (3.30-5.50) M/uL Hgb (12.0-15.0) g/dL Hct (36.0-48.0) % MCV (80-98) fL MCH (27-31) pg MCHC (32-36) % Plt Count (150-400) K/uL Neut % (Auto) (36-66) % Lymph % (Auto) (24-44) % [place] % (Auto) (2-6) % Eos % (Auto) (2-4) % Baso % (Auto) (0-1) % Sodium (140-148) mmol/L Potassium (3.6-5.2) mmol/L Chloride (100-108) mmol/L Carbon Dioxide (21-32) mmol/L Anion Gap (5.0-14.0) mmol/L BUN (7-18) mg/dL Creatinine (0.6-1.0) mg/dL Est Cr Clr Drug Dosing mL/min Estimated GFR (MDRD) (>60) Glucose (74-106) mg/dL Calcium (8.5-10.1) mg/dL Total Bilirubin (0.2-1.0) mg/dL AST (15-37) U/L ALT (12-78) U/L Alkaline Phosphatase (46-116) U/L Lactate Dehydrogenase (82-234) U/L Total Protein (6.4-8.2) g/dL Albumin (3.4-5.0) g/dL Globulin (2.3-3.5) g/dL Albumin/Globulin Ratio (1.2-2.2) Urine Color [place] A (YELLOW) Urine Appearance Clear (CLEAR) Urine pH 7.0 (5.0-8.0) Ur Specific [place] 1.025 (1.008-1.030) Urine Protein 30 H (NEGATIVE) mg/dL Urine Glucose (UA) Negative (NEGATIVE) mg/dL Urine Ketones Trace H (NEGATIVE) mg/dL Urine Occult Blood Negative (NEGATIVE) Urine Nitrite Negative (NEGATIVE) Urine Bilirubin Small H (NEGATIVE) Urine Urobilinogen 2.0 H (0.2-1.0) EU/dL Ur Leukocyte Esterase Negative (NEGATIVE) Urine RBC 0-5 (0-5) Urine WBC 0-5 (0-5) Ur Epithelial Cells Few Amorphous Sediment Few Urine Bacteria Few Urine Mucus Many Membrane Rupture Positive H (NEGATIVE) Urine Opiates Screen Negative (NEGATIVE) Ur Oxycodone Screen Negative (NEGATIVE) Urine Methadone Screen Negative (NEGATIVE) Ur Propoxyphene Screen Negative (NEGATIVE) Ur Barbiturates Screen Negative (NEGATIVE) Ur Tricyclics Screen Negative (NEGATIVE) Ur Phencyclidine Scrn Negative (NEGATIVE) Ur Amphetamine Screen Negative (NEGATIVE) U Methamphetamines Scrn Negative (NEGATIVE) Urine MDMA Screen Negative (NEGATIVE) U Benzodiazepines Scrn Negative (NEGATIVE) U Cocaine Metab Screen Negative (NEGATIVE) U Marijuana (THC) Screen Negative (NEGATIVE) 03/05/19 03/05/19 03/05/19 Range/Units 23:40 23:40 23:40 WBC 10.5 (4.5-11.0) K/uL RBC 3.62 (3.30-5.50) M/uL Hgb 11.2 L (12.0-15.0) g/dL Hct 33.7 L (36.0-48.0) % MCV 93 (80-98) fL MCH 31 (27-31) pg MCHC 33 (32-36) % Plt Count 186 (150-400) K/uL Neut % (Auto) 74 H (36-66) % Lymph % (Auto) 18 L (24-44) % [place] % (Auto) 7 H (2-6) % Eos % (Auto) 1 L (2-4) % Baso % (Auto) 0 (0-1) % Sodium 138 L (140-148) mmol/L Potassium 3.7 (3.6-5.2) mmol/L Chloride 103 (100-108) mmol/L Carbon Dioxide 24 (21-32) mmol/L Anion Gap 14.7 H (5.0-14.0) mmol/L BUN 10 (7-18) mg/dL Creatinine 0.7 (0.6-1.0) mg/dL Est Cr Clr Drug Dosing 110.01 mL/min Estimated GFR (MDRD) > 60 (>60) Glucose 112 H (74-106) mg/dL Calcium 9.1 (8.5-10.1) mg/dL Total Bilirubin 0.6 (0.2-1.0) mg/dL AST 15 (15-37) U/L ALT 16 (12-78) U/L Alkaline Phosphatase 173 H (46-116) U/L Lactate Dehydrogenase 131 (82-234) U/L Total Protein 6.6 (6.4-8.2) g/dL Albumin 2.5 L (3.4-5.0) g/dL Globulin 4.1 H (2.3-3.5) g/dL Albumin/Globulin Ratio 0.6 L (1.2-2.2) Urine Color (YELLOW) Urine Appearance (CLEAR) Urine pH (5.0-8.0) Ur Specific [place] (1.008-1.030) Urine Protein (NEGATIVE) mg/dL Urine Glucose (UA) (NEGATIVE) mg/dL Urine Ketones (NEGATIVE) mg/dL Urine Occult Blood (NEGATIVE) Urine Nitrite (NEGATIVE) Urine Bilirubin (NEGATIVE) Urine Urobilinogen (0.2-1.0) EU/dL Ur Leukocyte Esterase (NEGATIVE) Urine RBC (0-5) Urine WBC (0-5) Ur Epithelial Cells Amorphous Sediment Urine Bacteria Urine Mucus Membrane Rupture (NEGATIVE) Urine Opiates Screen (NEGATIVE) Ur Oxycodone Screen (NEGATIVE) Urine Methadone Screen (NEGATIVE) Ur Propoxyphene Screen (NEGATIVE) Ur Barbiturates Screen (NEGATIVE) Ur Tricyclics Screen (NEGATIVE) Ur Phencyclidine Scrn (NEGATIVE) Ur Amphetamine Screen (NEGATIVE) U Methamphetamines Scrn (NEGATIVE) Urine MDMA Screen (NEGATIVE) U Benzodiazepines Scrn (NEGATIVE) U Cocaine Metab Screen (NEGATIVE) U Marijuana (THC) Screen (NEGATIVE) Med Orders - Current: Current Medications Acetaminophen (Tylenol Bulk Bottle) 0 mg PO Q4H PRN PRN Reason: Pain Calcium Carbonate/Glycine (Tums) 1,000 mg PO Q2H PRN PRN Reason: Indigestion Diphenhydramine HCl (Benadryl) 25 mg IVPUSH Q6H PRN PRN Reason: Itching Diphenhydramine HCl (Benadryl) 50 mg IVPUSH Q6H PRN PRN Reason: Itching Docusate Sodium (Colace) 100 mg PO BID PRN PRN Reason: Constipation Emollient Ointment (Lansinoh Hpa) 1 gm TOP ASDIRECTED PRN PRN Reason: Sore Nipples Ephedrine Sulfate (Ephedrine Sulfate) 10 mg IVPUSH ASDIRECTED PRN PRN Reason: Hypotension Ropivacaine 200 mg/ Premix 100 mls @ 0 mls/hr EPIDUR ASDIRECTED DANIEL Oxytocin/Sodium Chloride (Pitocin In Ns 20 Units/1,000 Ml) 20 unit in 1,000 mls @ 6 mls/hr IV TITRATE DANIEL; Protocol Last Titration: 03/06/19 16:41 Dose: 42 mls/hr Penicillin G Potassium 2.5 (millunits/ Sodium Chloride) 50 mls @ 100 mls/hr IV Q4H DANIEL Last Admin: 03/06/19 16:51 Dose: 100 mls/hr Lactated Ringer's (Ringers, Lactated) 1,000 mls @ 125 mls/hr IV ASDIRECTED DANIEL Last Admin: 03/06/19 16:02 Dose: 125 mls/hr Ibuprofen (Motrin Bulk Bottle) 600 mg PO Q6H PRN PRN Reason: Pain Naloxone HCl (Narcan) 0.1 mg IVPUSH ASDIRECTED PRN PRN Reason: Oversedation Ondansetron HCl (Zofran) 4 mg IV Q4H PRN PRN Reason: Nausea/Vomiting Last Admin: 03/06/19 17:13 Dose: 4 mg Sodium Chloride (Saline Flush) 10 ml FLUSH ASDIRECTED PRN PRN Reason: Keep Vein Open Discontinued Medications Lactated Ringer's (Ringers, Lactated) 1,000 mls @ 999 mls/hr IV .BOLUS ONE Stop: 03/06/19 01:13 Last Admin: 03/06/19 00:20 Dose: 999 mls/hr Penicillin G Potassium 5 (millunits/ Sodium Chloride) 50 mls @ 100 mls/hr IV ONETIME ONE Stop: 03/06/19 00:59 Last Admin: 03/06/19 01:20 Dose: 100 mls/hr Ropivacaine (Naropin 0.2%) Confirm Administered Dose 100 mls @ as directed .ROUTE .STK-MED ONE Stop: 03/06/19 16:46 - Exam General: Alert, Oriented HEENT: Pupils Equal, Pupils Reactive, EOMI, Mucous Membr. Moist/[place] Neck: Supple Lungs: Clear to Auscultation, Normal Respiratory Effort Cardiovascular: Regular Rate, Regular Rhythm GI/Abdominal Exam: Normal Bowel Sounds, Soft, Non-Tender, No Organomegaly, No Distention, No Abnormal Bruit, No Mass, Pelvis Stable (Female) Exam: Normal External Exam, Normal Bimanual Exam, Cervical Dilatation, Enlarged Uterus, Vaginal Bleeding. No: Vaginal Tears Back Exam: Normal Inspection, Full Range of Motion Extremities: Normal Inspection, Normal Range of Motion, Non-Tender, No Pedal Edema, Normal Capillary Refill Skin: Warm, Dry, Intact Wound/Incisions: Healing Well Neurological: No New Focal Deficit Psy/Mental Status: Alert, Normal Affect, Normal Mood - Problem List & Annotations (1) High-risk SNOMED Code(s): 76318565 Code(s): O09.90 - SUPERVISION OF HIGH RISK , UNSP, UNSP TRIMESTER Status: Acute Priority: High Current Visit: Yes Qualifiers: Trimester: third trimester Qualified Code(s): O09.93 - Supervision of high risk , unspecified, third trimester (2) Meconium in amniotic fluid SNOMED Code(s): 526316328 Code(s): P96.83 - MECONIUM STAINING Status: Acute Priority: High Current Visit: Yes (3) SROM (spontaneous rupture of membranes) SNOMED Code(s): 464516695 Code(s): HNY0147 - Status: Acute Current Visit: Yes (4) Intrahepatic cholestasis of in third trimester SNOMED Code(s): 107948876, 296347222 Code(s): O26.613 - LIVER AND BILIARY TRACT DISORD IN , THIRD TRIMESTER; K83.1 - OBSTRUCTION OF BILE DUCT Status: Acute Priority: High Current Visit: No (5) SNOMED Code(s): 77804300 Code(s): Z34.90 - ENCNTR FOR SUPRVSN OF NORMAL , UNSP, UNSP TRIMESTER Status: Acute Current Visit: No Qualifiers: Weeks of gestation: 37 weeks Qualified Code(s): Z3A.37 - 37 weeks gestation of (6) Spontaneous vaginal delivery SNOMED Code(s): 792892355 Code(s): O80 - ENCOUNTER FOR FULL-TERM UNCOMPLICATED DELIVERY Status: Acute Current Visit: Yes - Problem List Review Problem List Initiated/Reviewed/Updated: Yes - My Orders Last 24 Hours: My Active Orders 03/06/19 16:00 Lactated Ringers [Ringers, Lactated] 1,000 ml IV ASDIRECTED 03/06/19 18:50 Consult to Conference And Event Organiser [CONS] Routine Docusate Sodium [Colace] 100 mg PO BID PRN Lanolin [Lansinoh HPA] 1 gm TOP ASDIRECTED PRN Assess Lochia [WOMSER] Per Unit Routine Assess Uterine Involution [WOMSER] Per Unit Routine 03/06/19 18:51 Patient Status [ADT] Routine Vital Signs [RC] PFP 03/06/19 18:52 Ice Therapy [OM.PC] Per Unit Routine Perineal Care [OM.PC] Per Unit Routine 03/06/19 18:54 Acetaminophen [Tylenol Bulk Bottle] See Dose Instructions PO Q4H PRN Ibuprofen [Motrin Bulk Bottle] 600 mg PO Q6H PRN 03/07/19 05:11 CBC WITH AUTO DIFF [HEME] AM - Assessment Assessment:: 03/06/19 28 yo with at 37 2/7 weeks No vaginal or perineal lacerations Meconium stained fluid, penicillin given in labor for prelabor rupture of membranes Intrahepatic cholestasis in started EBL 200 mL - Plan Plan:: 03/06/2019 28 yo came in late yesterday evening after suspected SROM at home She now states she had green discharge mucous and more yesterday also but does not believe she was ruptured then She is 37 1/7 gestational weeks today Amnisure was positive and fluid was meconium stained Contractions irregular and sporadic SVE-/2-posterior FHTs category one She has been being treated and watched for ICP during this She has a history of ICP in previous pregnancies Bile salts have been stable-Mondays was 9.0 AST-15, ALT-16 Other labs-O positive, GBS negative, Hep B neg, Hep C neg, HIV neg, RPR nonreactive Plan- Will continue to monitor for active labor Will continue to monitor FHTs If no active labor by 0500 will initiate pitocin per protocol Will start antibiotic prophylaxis since possible PROM Once in active labor pattern may have an epidural for pain management per patient request Plan and anticipate a vaginal delivery ------- 03/06/19 Placenta to pathology Hgb in am support Routine pp cares Anticipate 24-28 hour stay
[2019-03-07] MEDS: Penicillin G Potassium 2.5 MILLUNITS in Sodium Chloride 0.9% 50 ML IV SCH ×2 (00:14→05:45)
--- NOTE | 2019-03-07 09:21 | PCM.PNPP ---
- General Info Date of Service: 03/07/19 Functional Status: Reports: Pain Controlled - Review of Systems General: Reports: No Symptoms HEENT: Reports: No Symptoms Pulmonary: Reports: No Symptoms Cardiovascular: Reports: No Symptoms Gastrointestinal: Reports: No Symptoms Genitourinary: Reports: No Symptoms Musculoskeletal: Reports: No Symptoms Skin: Reports: Pruritis Neurological: Reports: No Symptoms Psychiatric: Reports: No Symptoms - General Info Date of Service: 03/07/19 - Patient Data Vital Signs - Most Recent: Last Vital Signs Temp 36.2 C 03/07/19 07:58 Pulse 65 03/07/19 07:58 Resp 18 03/07/19 07:58 BP 98/59 L 03/07/19 07:58 Pulse Ox 98 03/07/19 07:58 Weight - Most Recent: 92.079 kg I&O - Last 24 Hours: Intake & Output 03/06/19 03/07/19 03/07/19 22:59 06:59 14:59 Intake Total 4770 240 Balance 4770 240 Lab Results - Last 24 Hours: Laboratory Results - last 24 hr 03/07/19 Range/Units 05:08 WBC 9.8 (4.5-11.0) K/uL RBC 3.44 (3.30-5.50) M/uL Hgb 10.7 L (12.0-15.0) g/dL Hct 32.2 L (36.0-48.0) % MCV 94 (80-98) fL MCH 31 (27-31) pg MCHC 33 (32-36) % Plt Count 179 (150-400) K/uL Neut % (Auto) 76 H (36-66) % Lymph % (Auto) 16 L (24-44) % [place] % (Auto) 7 H (2-6) % Eos % (Auto) 1 L (2-4) % Baso % (Auto) 0 (0-1) % Med Orders - Current: Current Medications Acetaminophen (Tylenol Bulk Bottle) 0 mg PO Q4H PRN PRN Reason: Pain Last Admin: 03/06/19 23:00 Dose: 1 bottle Calcium Carbonate/Glycine (Tums) 1,000 mg PO Q2H PRN PRN Reason: Indigestion Diphenhydramine HCl (Benadryl) 25 mg IVPUSH Q6H PRN PRN Reason: Itching Last Admin: 03/07/19 02:45 Dose: 25 mg Diphenhydramine HCl (Benadryl) 50 mg IVPUSH Q6H PRN PRN Reason: Itching Docusate Sodium (Colace) 100 mg PO BID PRN PRN Reason: Constipation Emollient Ointment (Lansinoh Hpa) 1 gm TOP ASDIRECTED PRN PRN Reason: Sore Nipples Last Admin: 03/06/19 22:59 Dose: 1 tube Ephedrine Sulfate (Ephedrine Sulfate) 10 mg IVPUSH ASDIRECTED PRN PRN Reason: Hypotension Ropivacaine 200 mg/ Premix 100 mls @ 0 mls/hr EPIDUR ASDIRECTED DANIEL Oxytocin/Sodium Chloride (Pitocin In Ns 20 Units/1,000 Ml) 20 unit in 1,000 mls @ 6 mls/hr IV TITRATE DANIEL; Protocol Last Titration: 03/06/19 16:41 Dose: 42 mls/hr Lactated Ringer's (Ringers, Lactated) 1,000 mls @ 125 mls/hr IV ASDIRECTED DANIEL Last Admin: 03/06/19 16:02 Dose: 125 mls/hr Ibuprofen (Motrin Bulk Bottle) 600 mg PO Q6H PRN PRN Reason: Pain Last Admin: 03/06/19 22:59 Dose: 1 bottle Naloxone HCl (Narcan) 0.1 mg IVPUSH ASDIRECTED PRN PRN Reason: Oversedation Ondansetron HCl (Zofran) 4 mg IV Q4H PRN PRN Reason: Nausea/Vomiting Last Admin: 03/06/19 17:13 Dose: 4 mg Sodium Chloride (Saline Flush) 10 ml FLUSH ASDIRECTED PRN PRN Reason: Keep Vein Open Discontinued Medications Lactated Ringer's (Ringers, Lactated) 1,000 mls @ 999 mls/hr IV .BOLUS ONE Stop: 03/06/19 01:13 Last Admin: 03/06/19 00:20 Dose: 999 mls/hr Penicillin G Potassium 5 (millunits/ Sodium Chloride) 50 mls @ 100 mls/hr IV ONETIME ONE Stop: 03/06/19 00:59 Last Admin: 03/06/19 01:20 Dose: 100 mls/hr Penicillin G Potassium 2.5 (millunits/ Sodium Chloride) 50 mls @ 100 mls/hr IV Q4H DANIEL Last Admin: 03/07/19 05:45 Dose: Not Given Ropivacaine (Naropin 0.2%) Confirm Administered Dose 100 mls @ as directed .ROUTE .STK-MED ONE Stop: 03/06/19 16:46 - Interaction Disposition, : in Room with Family Infant Interaction: Holding Feeding: Breastfed ; Nursed Well Support Person: Significant Other, Other (see below) (daughter in room with her) - Recovery Exam Fundal Tone: Firms with Massage Fundal Level: 2 Fingerbreadths Above Umbilicus Fundal Placement: Midline Lochia Amount: Moderate Lochia Color: Rubra/Red Perineum Description: Intact, Minimal Bruising/Swelling, Redness Episiotomy/Laceration: None Bladder Status: Nonpalpable, Voiding Urinary Elimination: Voided - Exam General: Alert, Oriented HEENT: Pupils Equal Neck: Supple Lungs: Clear to Auscultation, Normal Respiratory Effort Cardiovascular: Regular Rate, Regular Rhythm GI/Abdominal Exam: Normal Bowel Sounds, Soft, Non-Tender, No Organomegaly, No Distention, No Abnormal Bruit, No Mass, Pelvis Stable Extremities: Normal Inspection, Normal Range of Motion, Non-Tender, No Pedal Edema, Normal Capillary Refill Skin: Warm, Dry, Intact Neurological: No New Focal Deficit Psy/Mental Status: Alert, Normal Affect, Normal Mood - Problem List & Annotations (1) High-risk SNOMED Code(s): 31524627 Code(s): O09.90 - SUPERVISION OF HIGH RISK , UNSP, UNSP TRIMESTER Status: Acute Priority: High Current Visit: Yes Qualifiers: Trimester: third trimester Qualified Code(s): O09.93 - Supervision of high risk , unspecified, third trimester (2) Meconium in amniotic fluid SNOMED Code(s): 579225184 Code(s): P96.83 - MECONIUM STAINING Status: Acute Priority: High Current Visit: Yes (3) SROM (spontaneous rupture of membranes) SNOMED Code(s): 623223144 Code(s): FQX7581 - Status: Acute Current Visit: Yes (4) Intrahepatic cholestasis of in third trimester SNOMED Code(s): 545826088, 613586839 Code(s): O26.613 - LIVER AND BILIARY TRACT DISORD IN , THIRD TRIMESTER; K83.1 - OBSTRUCTION OF BILE DUCT Status: Acute Priority: High Current Visit: No (5) SNOMED Code(s): 65827705 Code(s): Z34.90 - ENCNTR FOR SUPRVSN OF NORMAL , UNSP, UNSP TRIMESTER Status: Acute Current Visit: No Qualifiers: Weeks of gestation: 37 weeks Qualified Code(s): Z3A.37 - 37 weeks gestation of (6) Spontaneous vaginal delivery SNOMED Code(s): 128627536 Code(s): O80 - ENCOUNTER FOR FULL-TERM UNCOMPLICATED DELIVERY Status: Acute Current Visit: Yes (7) started SNOMED Code(s): 074873235 Code(s): JMX7801 - Status: Acute Current Visit: Yes - Problem List Review Problem List Initiated/Reviewed/Updated: Yes - My Orders Last 24 Hours: My Active Orders 03/06/19 16:00 Lactated Ringers [Ringers, Lactated] 1,000 ml IV ASDIRECTED 03/06/19 18:50 Consult to Accounts Supervisor [CONS] Routine Docusate Sodium [Colace] 100 mg PO BID PRN Lanolin [Lansinoh HPA] 1 gm TOP ASDIRECTED PRN Assess Lochia [WOMSER] Per Unit Routine Assess Uterine Involution [WOMSER] Per Unit Routine 03/06/19 18:51 Patient Status [ADT] Routine 03/06/19 18:52 Ice Therapy [OM.PC] Per Unit Routine Perineal Care [OM.PC] Per Unit Routine 03/06/19 18:54 Acetaminophen [Tylenol Bulk Bottle] See Dose Instructions PO Q4H PRN Ibuprofen [Motrin Bulk Bottle] 600 mg PO Q6H PRN - Assessment Assessment:: 03/06/19 28 yo with at 37 2/7 weeks No vaginal or perineal lacerations Meconium stained fluid, penicillin given in labor for prelabor rupture of membranes Intrahepatic cholestasis in started EBL 200 mL 03/07/19 is going fair to good, needs help with deeper latch FF, bleeding light to moderate without clots VSS Pain controlled Hgb 10.7 Perineum intact She complains of itching still - Plan Plan:: 03/06/2019 28 yo came in late yesterday evening after suspected SROM at home She now states she had green discharge mucous and more yesterday also but does not believe she was ruptured then She is 37 1/7 gestational weeks today Amnisure was positive and fluid was meconium stained Contractions irregular and sporadic SVE-/-2-posterior FHTs category one She has been being treated and watched for ICP during this She has a history of ICP in previous pregnancies Bile salts have been stable-Mondays was 9.0 AST-15, ALT-16 Other labs-O positive, GBS negative, Hep B neg, Hep C neg, HIV neg, RPR nonreactive Plan- Will continue to monitor for active labor Will continue to monitor FHTs If no active labor by 0500 will initiate pitocin per protocol Will start antibiotic prophylaxis since possible PROM Once in active labor pattern may have an epidural for pain management per patient request Plan and anticipate a vaginal delivery ------- 03/06/19 Placenta to pathology Hgb in am support Routine pp cares Anticipate 24-28 hour stay 03/07/19 Stopped ursodiol, itching should improve by 2 days Recheck liver enzymes at 6 weeks pp Anticipate discharge home tomorrow Routine pp cares support today Breast pump Rx written
[2019-03-07] MEDS ORDERED: diphenhydrAMINE 25 MG Cap PO PRN (17:54)
--- NOTE | 2019-03-08 09:12 | PCM.PNPP ---
- General Info Date of Service: 03/08/19 Functional Status: Reports: Pain Controlled - Review of Systems General: Reports: No Symptoms HEENT: Reports: No Symptoms Pulmonary: Reports: No Symptoms Cardiovascular: Reports: No Symptoms Gastrointestinal: Reports: No Symptoms Genitourinary: Reports: No Symptoms Musculoskeletal: Reports: No Symptoms Skin: Reports: No Symptoms Neurological: Reports: No Symptoms Psychiatric: Reports: No Symptoms - General Info Date of Service: 03/08/19 - Patient Data Vital Signs - Most Recent: Last Vital Signs Temp 36.3 C 03/08/19 07:31 Pulse 72 03/08/19 07:31 Resp 16 03/08/19 07:31 BP 106/64 03/08/19 07:31 Pulse Ox 97 03/08/19 07:31 Weight - Most Recent: 92.079 kg I&O - Last 24 Hours: Intake & Output 03/07/19 03/08/19 03/08/19 23:59 06:59 14:59 Intake Total Balance Med Orders - Current: Current Medications Acetaminophen (Tylenol Bulk Bottle) 0 mg PO Q4H PRN PRN Reason: Pain Last Admin: 03/06/19 23:00 Dose: 1 bottle Calcium Carbonate/Glycine (Tums) 1,000 mg PO Q2H PRN PRN Reason: Indigestion Diphenhydramine HCl (Benadryl) 25 mg PO Q6H PRN PRN Reason: Itching Last Admin: 03/07/19 22:51 Dose: 25 mg Docusate Sodium (Colace) 100 mg PO BID PRN PRN Reason: Constipation Last Admin: 03/08/19 05:03 Dose: 100 mg Emollient Ointment (Lansinoh Hpa) 1 gm TOP ASDIRECTED PRN PRN Reason: Sore Nipples Last Admin: 03/06/19 22:59 Dose: 1 tube Ephedrine Sulfate (Ephedrine Sulfate) 10 mg IVPUSH ASDIRECTED PRN PRN Reason: Hypotension Ropivacaine 200 mg/ Premix 100 mls @ 0 mls/hr EPIDUR ASDIRECTED DANIEL Oxytocin/Sodium Chloride (Pitocin In Ns 20 Units/1,000 Ml) 20 unit in 1,000 mls @ 6 mls/hr IV TITRATE DANIEL; Protocol Last Titration: 03/06/19 16:41 Dose: 42 mls/hr Lactated Ringer's (Ringers, Lactated) 1,000 mls @ 125 mls/hr IV ASDIRECTED DANIEL Last Admin: 03/06/19 16:02 Dose: 125 mls/hr Ibuprofen (Motrin Bulk Bottle) 600 mg PO Q6H PRN PRN Reason: Pain Last Admin: 03/06/19 22:59 Dose: 1 bottle Naloxone HCl (Narcan) 0.1 mg IVPUSH ASDIRECTED PRN PRN Reason: Oversedation Ondansetron HCl (Zofran) 4 mg IV Q4H PRN PRN Reason: Nausea/Vomiting Last Admin: 03/06/19 17:13 Dose: 4 mg Sodium Chloride (Saline Flush) 10 ml FLUSH ASDIRECTED PRN PRN Reason: Keep Vein Open Discontinued Medications Diphenhydramine HCl (Benadryl) 25 mg IVPUSH Q6H PRN PRN Reason: Itching Last Admin: 03/07/19 02:45 Dose: 25 mg Diphenhydramine HCl (Benadryl) 50 mg IVPUSH Q6H PRN PRN Reason: Itching Lactated Ringer's (Ringers, Lactated) 1,000 mls @ 999 mls/hr IV .BOLUS ONE Stop: 03/06/19 01:13 Last Admin: 03/06/19 00:20 Dose: 999 mls/hr Penicillin G Potassium 5 (millunits/ Sodium Chloride) 50 mls @ 100 mls/hr IV ONETIME ONE Stop: 03/06/19 00:59 Last Admin: 03/06/19 01:20 Dose: 100 mls/hr Penicillin G Potassium 2.5 (millunits/ Sodium Chloride) 50 mls @ 100 mls/hr IV Q4H [facility] Last Admin: 03/07/19 05:45 Dose: Not Given Ropivacaine (Naropin 0.2%) Confirm Administered Dose 100 mls @ as directed .ROUTE .STK-MED ONE Stop: 03/06/19 16:46 - Interaction Disposition, : in Room with Family Infant Interaction: Holding Infant Infant Feeding: Breastfed ; Nursed Well Support Person: Significant Other, Other (see below) (daughter in room with her) - Recovery Exam Fundal Tone: Firm Fundal Level: 1 Fingerbreadths Above Umbilicus Fundal Placement: Midline Lochia Amount: Moderate Lochia Color: Rubra/Red Perineum Description: Intact, Minimal Bruising/Swelling Episiotomy/Laceration: None Bladder Status: Nonpalpable, Voiding Urinary Elimination: Voided - Exam General: Alert, Oriented HEENT: Pupils Equal Neck: Supple Lungs: Clear to Auscultation, Normal Respiratory Effort Cardiovascular: Regular Rate, Regular Rhythm GI/Abdominal Exam: Normal Bowel Sounds, Soft, Non-Tender, No Organomegaly, No Distention, No Abnormal Bruit, No Mass, Pelvis Stable Extremities: Normal Inspection, Normal Range of Motion, Non-Tender, No Pedal Edema, Normal Capillary Refill Skin: Warm, Dry, Intact Neurological: No New Focal Deficit Psy/Mental Status: Alert, Normal Affect, Normal Mood - Problem List & Annotations (1) High-risk SNOMED Code(s): 17390198 Code(s): O09.90 - SUPERVISION OF HIGH RISK , UNSP, UNSP TRIMESTER Status: Acute Priority: High Current Visit: Yes Qualifiers: Trimester: third trimester Qualified Code(s): O09.93 - Supervision of high risk , unspecified, third trimester (2) Meconium in amniotic fluid SNOMED Code(s): 783768860 Code(s): P96.83 - MECONIUM STAINING Status: Acute Priority: High Current Visit: Yes (3) SROM (spontaneous rupture of membranes) SNOMED Code(s): 656231014 Code(s): SNK8061 - Status: Acute Current Visit: Yes (4) Intrahepatic cholestasis of in third trimester SNOMED Code(s): 989621634, 844295478 Code(s): O26.613 - LIVER AND BILIARY TRACT DISORD IN , THIRD TRIMESTER; K83.1 - OBSTRUCTION OF BILE DUCT Status: Acute Priority: High Current Visit: No (5) SNOMED Code(s): 37494787 Code(s): Z34.90 - ENCNTR FOR SUPRVSN OF NORMAL , UNSP, UNSP TRIMESTER Status: Acute Current Visit: No Qualifiers: Weeks of gestation: 37 weeks Qualified Code(s): Z3A.37 - 37 weeks gestation of (6) Spontaneous vaginal delivery SNOMED Code(s): 859528248 Code(s): O80 - ENCOUNTER FOR FULL-TERM UNCOMPLICATED DELIVERY Status: Acute Current Visit: Yes (7) started SNOMED Code(s): 558936198 Code(s): GWB4685 - Status: Acute Current Visit: Yes - Problem List Review Problem List Initiated/Reviewed/Updated: Yes - My Orders Last 24 Hours: My Active Orders 03/07/19 17:54 diphenhydrAMINE [Benadryl] 25 mg PO Q6H PRN - Assessment Assessment:: 03/06/19 28 yo with at 37 2/7 weeks No vaginal or perineal lacerations Meconium stained fluid, penicillin given in labor for prelabor rupture of membranes Intrahepatic cholestasis in started EBL 200 mL 03/07/19 is going fair to good, needs help with deeper latch FF, bleeding light to moderate without clots VSS Pain controlled Hgb 10.7 Perineum intact She complains of itching still 03/08/19 going fair, difficulty and pain with latching, noted tight frenulum on baby (see baby note) FF bleeding light Pain controlled VSS Normal pp period without complications - Plan Plan:: 03/06/2019 28 yo came in late yesterday evening after suspected SROM at home She now states she had green discharge mucous and more yesterday also but does not believe she was ruptured then She is 37 1/7 gestational weeks today Amnisure was positive and fluid was meconium stained Contractions irregular and sporadic SVE-2/70/-2-posterior FHTs category one She has been being treated and watched for ICP during this She has a history of ICP in previous pregnancies Bile salts have been stable-Mondays was 9.0 AST-15, ALT-16 Other labs-O positive, GBS negative, Hep B neg, Hep C neg, HIV neg, RPR nonreactive Plan- Will continue to monitor for active labor Will continue to monitor FHTs If no active labor by 0500 will initiate pitocin per protocol Will start antibiotic prophylaxis since possible PROM Once in active labor pattern may have an epidural for pain management per patient request Plan and anticipate a vaginal delivery ------- 03/06/19 Placenta to pathology Hgb in am support Routine pp cares Anticipate 24-28 hour stay 03/07/19 Stopped ursodiol, itching should improve by 2 days Recheck liver enzymes at 6 weeks pp Anticipate discharge home tomorrow Routine pp cares support today Breast pump Rx written 03/08/19 Discharge home today Education done regarding warning s/s pp support Mother is pumping, , and supplementing 6 week pp check with Maranda- liver enzymes at that visit
== END 2019-03-08 11:23 | disposition home or self-care (01) | DRG 805 ==
LOC: JP.OBCHECK 22:33 → JP.OB 23:52 → OBSVTOIN 03-06 18:26 → JP.MS 03-06 18:30
PROVIDERS: ADMIT Advanced Practice Midwife; ATTEND Advanced Practice Midwife
PROC: 10E0XZZ Delivery of Products of Conception, External Approach (ICD-10-PCS; principal; 2019-03-06)
PROC: 3E033VJ Introduction of Other Hormone into Peripheral Vein, Percutaneous Approach (ICD-10-PCS; 2019-03-06)
PROC: 10H07YZ Insertion of Other Device into Products of Conception, Via Natural or Artificial Opening (ICD-10-PCS; 2019-03-06)
PROC: 3E0R3BZ Introduction of Anesthetic Agent into Spinal Canal, Percutaneous Approach (ICD-10-PCS; 2019-03-06)
PROC: 00HU33Z Insertion of Infusion Device into Spinal Canal, Percutaneous Approach (ICD-10-PCS; 2019-03-06)
DX: O26.62 Liver and biliary tract disorders in childbirth (principal); K83.1 Obstruction of bile duct; Z37.0 Single live birth; O99.344 Other mental disorders complicating childbirth; O99.62 Diseases of the digestive system complicating childbirth; F41.8 Other specified anxiety disorders; O77.0 Labor and delivery complicated by meconium in amniotic fluid; O99.214 Obesity complicating childbirth; E66.9 Obesity, unspecified; O99.334 Smoking (tobacco) complicating childbirth; F17.210 Nicotine dependence, cigarettes, uncomplicated; O76 Abnormality in fetal heart rate and rhythm complicating labor and delivery; Z3A.37 37 weeks gestation of pregnancy; Z88.1 Allergy status to other antibiotic agents; Z79.899 Other long term (current) drug therapy
CPT/HCPCS: 36415; 51702; 59409; 80053; 80305-QW; 81001; 83615; 84112; 85025; 88307; 99211; A9270-GY; J1200; J2405; J2540; J2590; J2795; J7050; J7120

== ENCOUNTER 2020-08-19 06:56 | Inpatient (IN) | payer MEDICAID ==
[2020-08-19] MEDS ORDERED: Sodium Chloride 0.9% 10 ML Syringe FLUSH PRN (08:25)
[2020-08-19] MEDS ORDERED: Misoprostol 50 MCG (1/2 of 100 MCG) Tab VAG ONE (08:30)
--- NOTE | 2020-08-19 08:38 | PCM.LDHP ---
L&D History of Present Illness - General Date of Service: 08/19/20 (high risk ) Admit Problem/Dx: Patient Status Order with Admit Dx/Problem 08/19/20 08:25 Patient Status [ADT] Routine Admission Diagnosis/Problem Admission Diagnosis/Problem High risk Source of Information: Patient History Limitations: Reports: No Limitations - History of Present Illness Introduction:: 29 year old here for possible labor in induction for ICP. She has polyhydramnios and unstable presentation. Flips from breech to cephalic. Currently cephalic ANNALISE. Fluid today 23.5cm. bile salts have been running in the high teens BPP 12/11 this morning with a reactive NST 02/12 Cervix is not ripe ft/50/-3 soft. GBS neg ABO O pos HIV neg Covid swab pending - Related Data Allergies/Adverse Reactions: Allergies Allergy/AdvReac Type Severity Reaction Status Date / Time No Known Allergies Allergy Verified 07/02/18 20:42 Home Medications: Home Meds Acetaminophen [Tylenol Extra Strength] 1,000 mg PO ASDIRECTED PRN 07/02/18 [History] #103/Iron Fumarate/Fa [ ] 1 tab PO DAILY 01/06/19 [History] ursodioL [Ursodiol] 300 mg PO TID 01/06/19 [History] Docusate Sodium [Stool Softener] 100 mg PO DAILY PRN 03/02/19 [History] Calcium Carbonate [Tums] 1 tab PO Q2H PRN 08/19/20 [History] Fluticasone Propionate [Flonase] 1 inh NASBOTH DAILY PRN 08/19/20 [History] Omeprazole Magnesium [Prilosec] 20 mg PO DAILY 08/19/20 [History] hydrOXYzine pamoate [Vistaril] 1 tab PO TID PRN 08/19/20 [History] Past Medical History HEENT History: Reports: Impaired Vision Cardiovascular History: Reports: Other (See Below) Other Cardiovascular History: PIH Respiratory History: Reports: None Gastrointestinal History: Reports: Cholelithiasis, GERD, Hiatal Hernia, Other (See Below) Other Gastrointestinal History: cholestasis during current Genitourinary History: Reports: None 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: , Spontaneous : 7 Para: 4 LMP (Approximate): (IDANIA 09/09/20) Musculoskeletal History: Reports: Back Pain, Chronic Neurological History: Reports: None Psychiatric History: Reports: Anxiety, Depression Endocrine/Metabolic History: Reports: Obesity/BMI 30+, Vitamin D Deficiency Hematologic History: Reports: None Immunologic History: Reports: None Oncologic (Cancer) History: Reports: None Dermatologic History: Reports: None - Infectious Disease History Infectious Disease History: Reports: None - Past Surgical History HEENT Surgical History: Reports: None Cardiovascular Surgical History: Reports: None Respiratory Surgical History: Reports: None GI Surgical History: Reports: Cholecystectomy, EGD, Hernia, Abdominal, Other (See Below) Other GI Surgeries/Procedures: Abd hernia with mesh Female Surgical History: Reports: None Endocrine Surgical History: Reports: None Neurological Surgical History: Reports: Discectomy Musculoskeletal Surgical History: Reports: Other (See Below) Other Musculoskeletal Surgeries/Procedures:: discectomy L4-S1 Social & Family History - Family History Family Medical History: No Pertinent Family History Cardiac: Reports: Afib Respiratory: Reports: Asthma, Other (See Below) Other Respiratory Family Hisory: pulmonary disease Psychiatric: Reports: Bipolar, Depression, Other (See Below) Other Psychiatric Family History: addiction Endocrine/Metabolic: Reports: Diabetes, type II - Tobacco Use Tobacco Use Status *Q: Current Every Day Tobacco User Years of Tobacco use: 15 Packs/Tins Daily: 0.5 - Caffeine Use Caffeine Use: Reports: Coffee - Recreational Drug Use Recreational Drug Use: No H&P Review of Systems - Review of Systems: Review Of Systems: See Below General: Reports: No Symptoms HEENT: Reports: No Symptoms Pulmonary: Reports: Cough Cardiovascular: Reports: No Symptoms Gastrointestinal: Reports: No Symptoms Genitourinary: Reports: No Symptoms Musculoskeletal: Reports: No Symptoms Skin: Reports: No Symptoms Psychiatric: Reports: No Symptoms Neurological: Reports: No Symptoms Hematologic/Lymphatic: Reports: No Symptoms Immunologic: Reports: No Symptoms L&D Exam - Exam Exam: See Below - Vital Signs Vital Signs: Last Vital Signs Temp 97.4 F 08/19/20 07:00 Pulse 65 08/19/20 08:15 Resp 16 08/19/20 08:15 BP 108/54 L 08/19/20 08:15 Pulse Ox 99 08/19/20 07:00 Weight: 195 lb - OB Specific Contraction Frequency (min): 0 Movement: Active Heart Tones: Present Heart Tones per Min: 120 Heart Rate (FHR) Variability: Moderate (6-25 bmp) Presentation: Right Occiput Anterior (ANNALISE) Estimated Weight: 7-8 pounds - Castillo Score Castillo Score Cervix Position: Midposition Castillo Score Consistency: Soft Castillo Score Effacement: 31-50% Castillo Score Dilation: Closed Castillo Score 's Station: -3 Castillo Score Total: 4 - Exam General: Alert, Oriented HEENT: PERRLA Neck: Supple Lungs: Normal Respiratory Effort Cardiovascular: Regular Rate, Regular Rhythm GI/Abdominal Exam: Normal Bowel Sounds Rectal Exam: Normal Exam Genitourinary: Enlarged uterus Back Exam: Normal Inspection Extremities: No Pedal Edema, Normal Capillary Refill Skin: Warm Neurological: Cranial Nerves Intact, Reflexes Equal Bilateral Psychiatric: Alert, Normal Affect - Patient Data Lab Results Last 24 hrs: Laboratory Results - last 24 hr 08/19/20 Range/Units 07:06 Urine Color Yellow (YELLOW) Urine Appearance Cloudy A (CLEAR) Urine pH 7.0 (5.0-8.0) Ur Specific [place] >= 1.030 (1.008-1.030) Urine Protein Trace H (NEGATIVE) mg/dL Urine Glucose (UA) Negative (NEGATIVE) mg/dL Urine Ketones Negative (NEGATIVE) mg/dL Urine Occult Blood Negative (NEGATIVE) Urine Nitrite Negative (NEGATIVE) Urine Bilirubin Negative (NEGATIVE) Urine Urobilinogen 0.2 (0.2-1.0) EU/dL Ur Leukocyte Esterase Small H (NEGATIVE) Urine RBC 0-5 (0-5) Urine WBC 75-100 H (0-5) Ur Epithelial Cells Moderate Amorphous Sediment Not seen Urine Bacteria Many Urine Mucus Many - Problem List (1) High-risk SNOMED Code(s): 77122967 ICD Code: O09.90 - SUPERVISION OF HIGH RISK , UNSP, UNSP TRIMESTER Status: Acute Priority: High Current Visit: Yes Qualifiers: Trimester: third trimester Qualified Code(s): O09.93 - Supervision of high risk , unspecified, third trimester (2) Cough SNOMED Code(s): 97047318 ICD Code: R05 - COUGH Status: Acute Current Visit: Yes (3) Tobacco abuse disorder SNOMED Code(s): 293655657 ICD Code: Z72.0 - TOBACCO USE Status: Acute Current Visit: Yes (4) SNOMED Code(s): 74893197 ICD Code: Z34.90 - ENCNTR FOR SUPRVSN OF NORMAL , UNSP, UNSP TRIMESTER Status: Acute Current Visit: No Qualifiers: Weeks of gestation: 37 weeks Qualified Code(s): Z3A.37 - 37 weeks gestation of (5) Intrahepatic cholestasis of in third trimester SNOMED Code(s): 636312080, 283283150 ICD Code: O26.613 - LIVER AND BILIARY TRACT DISORD IN , THIRD TRIMESTER; K83.1 - OBSTRUCTION OF BILE DUCT Status: Acute Priority: High Current Visit: Yes Problem List Initiated/Reviewed/Updated: Yes Orders Last 24hrs: Active Orders 24 hr Category Date Time Status Patient Status [ADT] Routine ADT 08/19/20 08:25 Ordered Antiembolic Devices [RC] .Routine Care 08/19/20 08:27 Ordered Communication Order [RC] ASDIRECTED Care 08/19/20 08:25 Ordered Communication Order [RC] ASDIRECTED Care 08/19/20 08:25 Ordered Communication Order [RC] ASDIRECTED Care 08/19/20 08:25 Ordered Communication Order [RC] ASDIRECTED Care 08/19/20 08:25 Ordered Heart Tones [RC] CONTINUOUS Care 08/19/20 08:27 Ordered Non Stress Test [RC] Click to Edit Care 08/19/20 08:25 Ordered May Shower [RC] ASDIRECTED Care 08/19/20 08:25 Ordered Notify Provider [RC] PRN Care 08/19/20 08:25 Ordered Notify Provider [RC] PRN Care 08/19/20 08:25 Ordered Notify Provider [RC] STAT Care 08/19/20 08:25 Ordered Peripheral IV Care [RC] . DIRECTED Care 08/19/20 08:27 Ordered Up ad Latha [RC] ASDIRECTED Care 08/19/20 08:25 Ordered VTE/DVT Education [RC] Click to Edit Care 08/19/20 08:27 Ordered Vital Signs [RC] PER UNIT ROUTINE Care 08/19/20 08:25 Ordered Vital Signs [RC] PER UNIT ROUTINE Care 08/19/20 08:25 Ordered Regular Diet [DIET] Diet 08/19/20 Dinner Ordered BPP w NST [US] Routine Exams 08/19/20 06:30 Taken CBC WITH AUTO DIFF [HEME] Routine Lab 08/19/20 08:25 Ordered COMPREHENSIVE METABOLIC PN,CMP [CHEM] Routine Lab 08/19/20 08:25 Ordered CORONAVIRUS COVID-19 RAPID [MOLEC] Routine Lab 08/19/20 08:00 Ordered Sodium Chloride 0.9% [Saline Flush] Med 08/19/20 08:25 Ordered 10 ml FLUSH ASDIRECTED PRN miSOPROStoL [Cytotec] Med 08/19/20 08:30 Once 50 mcg VAG ONETIME ONE DVT/VTE Prophylaxis Reflex [OM.PC] Routine Oth 08/19/20 08:25 Ordered Peripheral IV Insertion Adult [OM.PC] Routine Oth 08/19/20 08:25 Ordered Resuscitation Status Routine Resus Stat 08/19/20 08:25 Ordered Medication Orders Misoprostol (Misoprostol 50 Mcg (1/2 Of 100 Mcg) Tab) 50 mcg VAG ONETIME ONE Stop: 08/19/20 08:31 Last Admin: 08/19/20 08:07 Dose: 50 mcg Documented by: BANG Sodium Chloride (Sodium Chloride 0.9% 10 Ml Syringe) 10 ml FLUSH ASDIRECTED PRN PRN Reason: Keep Vein Open Assessment/Plan Comment:: 08/19/20 29 year old with ICP who is 37 weeks gestation with an unripe cervix Plan this morning Miso 50 mcg for cervical ripening covid test pending will reassess at noon and discuss pitocin challenge. this maybe a multi-day process with frequent assessment the mom feels like we are overreacting. I discussed risks and benefits with remaining and her riask for stillbirth is quiet high with ICP.
[2020-08-19 10:46] LABS: CORONAVIRUS COVID-19 NAA NEGATIVE (NEGATIVE)
[2020-08-19] MEDS ORDERED: ePHEDrine 50 MG/ML SDV IVPUSH PRN (12:27)
[2020-08-19] MEDS ORDERED: Lactated Ringers 1,000 ML IV ONE (12:27)
--- NOTE | 2020-08-19 12:32 | PCM.PNLD ---
Labor Progress Note - VS & Meds Vital Signs: Last Vital Signs Temp 97.4 F 08/19/20 11:30 Pulse 86 08/19/20 11:30 Resp 16 08/19/20 11:30 BP 112/63 08/19/20 11:30 Pulse Ox 95 08/19/20 11:30 Active Medications: Current Medications Ephedrine Sulfate (Ephedrine 50 Mg/Ml Sdv) 10 mg IVPUSH ASDIRECTED PRN PRN Reason: Hypotension Lactated Ringer's (Ringers, Lactated) 1,000 mls @ 999 mls/hr IV .BOLUS ONE Stop: 08/19/20 13:27 Oxytocin/Sodium Chloride (Pitocin In Ns 20 Units/1,000 Ml) 1,000 mls @ 6 mls/hr IV TITRATE DANIEL; Protocol Sodium Chloride (Sodium Chloride 0.9% 10 Ml Syringe) 10 ml FLUSH ASDIRECTED PRN PRN Reason: Keep Vein Open Discontinued Medications Misoprostol (Misoprostol 50 Mcg (1/2 Of 100 Mcg) Tab) 50 mcg VAG ONETIME ONE Stop: 08/19/20 08:31 Last Admin: 08/19/20 08:07 Dose: 50 mcg Documented by: - Uterine Contractions Uterine Monitoring Mode: External [place], Palpation Contraction Frequency (min): irreg Contraction Intensity: Mild Uterine Resting Tone: Soft - Monitoring Monitor Mode: Doppler/Auscultation Heart Rate (FHR) Variability: Moderate (6-25 bmp) Accelerations: Present, 15x15 Decelerations: None - Vaginal Exam Dilation (cm): 1 Effacement (Percent): 75 Station: -1 Cervical Position: Midposition Sterile Vaginal Exam Performed By: Ingrid Mascorro Vaginal Exam Comment: nice 1 cm and baby has engaged - Labor Progress (Free Text) Labor Progress: 37 week ICP cervical change since this morning with one dose of Miso Plan pitocin augmentation plan for vaginal delivery later
[2020-08-19] MEDS ORDERED: Sodium Chloride 0.9% 1,000 ML IV SCH (13:45)
[2020-08-19] MEDS ORDERED: fentaNYL 100 MCG/2 ML SDV IVPUSH ONE ×2 (17:10→19:28)
--- NOTE | 2020-08-19 17:21 | PCM.PNLD ---
Labor Progress Note - VS & Meds Vital Signs: Last Vital Signs Temp 98 F 08/19/20 15:30 Pulse 65 08/19/20 15:30 Resp 18 08/19/20 15:30 BP 95/60 08/19/20 15:30 Pulse Ox 95 08/19/20 15:30 Active Medications: Current Medications Ephedrine Sulfate (Ephedrine 50 Mg/Ml Sdv) 10 mg IVPUSH ASDIRECTED PRN PRN Reason: Hypotension Fentanyl (Fentanyl 100 Mcg/2 Ml Sdv) 50 mcg IVPUSH ONETIME ONE Stop: 08/19/20 17:11 Oxytocin/Sodium Chloride (Pitocin In Ns 20 Units/1,000 Ml) 20 units in 1,000 mls @ 6 mls/hr IV TITRATE DANIEL; Protocol Last Titration: 08/19/20 15:01 Dose: 5 munits/min, 15 mls/hr Documented by: Sodium Chloride (Normal Saline) 1,000 mls @ 999 mls/hr IV ASDIRECTED DANIEL Sodium Chloride (Sodium Chloride 0.9% 10 Ml Syringe) 10 ml FLUSH ASDIRECTED PRN PRN Reason: Keep Vein Open Discontinued Medications Lactated Ringer's (Ringers, Lactated) 1,000 mls @ 999 mls/hr IV .BOLUS ONE Stop: 08/19/20 13:27 Misoprostol (Misoprostol 50 Mcg (1/2 Of 100 Mcg) Tab) 50 mcg VAG ONETIME ONE Stop: 08/19/20 08:31 Last Admin: 08/19/20 08:07 Dose: 50 mcg Documented by: - Uterine Contractions Uterine Monitoring Mode: External [place] Contraction Frequency (min): 1.5-4 Contraction Duration (sec): 60-90 Contraction Intensity: Moderate Uterine Resting Tone: Soft - Monitoring Monitor Mode: Doppler/Auscultation Heart Rate (FHR) Variability: Moderate (6-25 bmp) Accelerations: Present, 15x15 Decelerations: None Strip Review: Category I - Vaginal Exam Dilation (cm): 3-4 Effacement (Percent): 75 Station: 0 Cervical Position: Midposition Sterile Vaginal Exam Performed By: Ingrid Mascorro Vaginal Exam Comment: AROM clear - Labor Progress (Free Text) Labor Progress: labor progressing Clear fluid with rupture, AROM head down Plan for vaginal delivery later IV pain medication and possible epidural
--- NOTE | 2020-08-19 21:09 | PCM.PNLD ---
Labor Progress Note - VS & Meds Vital Signs: Last Vital Signs Temp 97.5 F 08/19/20 20:08 Pulse 71 08/19/20 19:10 Resp 18 08/19/20 19:10 BP 113/62 08/19/20 19:10 Pulse Ox 98 08/19/20 19:10 Active Medications: Current Medications Ephedrine Sulfate (Ephedrine 50 Mg/Ml Sdv) 10 mg IVPUSH ASDIRECTED PRN PRN Reason: Hypotension Oxytocin/Sodium Chloride (Pitocin In Ns 20 Units/1,000 Ml) 20 units in 1,000 mls @ 6 mls/hr IV TITRATE DANIEL; Protocol Last Titration: 08/19/20 20:07 Dose: 9 munits/min, 27 mls/hr Documented by: Sodium Chloride (Normal Saline) 1,000 mls @ 999 mls/hr IV ASDIRECTED DANIEL Sodium Chloride (Sodium Chloride 0.9% 10 Ml Syringe) 10 ml FLUSH ASDIRECTED PRN PRN Reason: Keep Vein Open Discontinued Medications Fentanyl (Fentanyl 100 Mcg/2 Ml Sdv) 50 mcg IVPUSH ONETIME ONE Stop: 08/19/20 17:11 Last Admin: 08/19/20 17:26 Dose: 50 mcg Documented by: Fentanyl (Fentanyl 100 Mcg/2 Ml Sdv) 50 mcg IVPUSH ONETIME ONE Stop: 08/19/20 19:29 Last Admin: 08/19/20 19:40 Dose: 50 mcg Documented by: Lactated Ringer's (Ringers, Lactated) 1,000 mls @ 999 mls/hr IV .BOLUS ONE Stop: 08/19/20 13:27 Misoprostol (Misoprostol 50 Mcg (1/2 Of 100 Mcg) Tab) 50 mcg VAG ONETIME ONE Stop: 08/19/20 08:31 Last Admin: 08/19/20 08:07 Dose: 50 mcg Documented by: - Uterine Contractions Uterine Monitoring Mode: External [place] Contraction Frequency (min): 2-3 Contraction Duration (sec): 60-90 Contraction Intensity: Moderate Uterine Resting Tone: Soft - Monitoring Monitor Mode: Doppler/Auscultation Heart Rate (FHR) Per Doppler: 140 Heart Rate (FHR) Variability: Moderate (6-25 bmp) Accelerations: Present, 15x15 Decelerations: None Strip Review: Category I - Vaginal Exam Dilation (cm): 7-8 Effacement (Percent): 80 Station: 0 Cervical Position: Posterior Sterile Vaginal Exam Performed By: Ingrid Mascorro Vaginal Exam Comment: progression good active labor - Labor Progress (Free Text) Labor Progress: FHT baseline 140 Cat one strip CE 7-8/80/0 pitocin infusing contractions every 2-3 minutes Now using Nitrous for pain anticipate vaginal delivery
[2020-08-19] MEDS ORDERED: Carboprost Tromethamine 250 MCG/1 ML Amp ONE (22:01)
[2020-08-19] MEDS ORDERED: Misoprostol 200 MCG Tab ONE (22:01)
[2020-08-19] MEDS ORDERED: Methylergonovine 0.2 MG/1 ML Amp ONE (22:01)
[2020-08-19] MEDS: Lidocaine 1% 50 ML MDV INJECT ONE (22:15)
[2020-08-19] MEDS ORDERED: Lidocaine 1% 50 ML MDV ONE (22:15)
[2020-08-19] MEDS: fentaNYL 100 MCG/2 ML SDV IVPUSH ONE (22:17)
[2020-08-19] MEDS ORDERED: fentaNYL 100 MCG/2 ML SDV ONE (22:17)
[2020-08-19] MEDS ORDERED: Acetaminophen 325 MG Tab, 50 Tab Bulk Bottle PO PRN (22:43)
[2020-08-19] MEDS ORDERED: Lanolin 100% Cream 40 GM Tube TOP ONE (22:43)
[2020-08-19] MEDS ORDERED: Hydrocortisone 2.5% Crm 30 GM Tube TOP PRN (22:43)
[2020-08-19] MEDS ORDERED: Witch Hazel Medicated Pads 100/Jar TOP ONE (22:43)
[2020-08-19] MEDS ORDERED: Ibuprofen 200 MG Tab, 24 Tab Bulk Bottle PO PRN (22:43)
[2020-08-19] MEDS ORDERED: Benzocaine 20% Top Spray 56 GM Bottle TOP ONE (22:43)
--- NOTE | 2020-08-19 23:00 | PCM.DEL ---
L & D Note - General Info Date of Service: 08/19/20 Mother's Due Date: 09/09/20 - Delivery Note Labor: Spontaneous Cervical Ripening Method: Misoprostil Delivery Outcome: Livebirth Delivery Method: Spontaneous Vaginal Delivery-Single Infant Delivery Mode: Spontaneous Presentation: Right Occiput Posterior (ROP) Nuchal Cord: None Anesthesia Type: Local, Nitrous Oxide Anesthetic: Lidocaine (Xylocaine) 0.5% Plain Local Anesthetic Volume: 5cc Amniotic Fluid Description: Clear Episiotomy Type: None Laceration: 1st Degree, Perineal Suture type: Vicryl Suture size: 3-0 Placenta: Intact, Spontaneous Cord: 3 Vessels Estimated Blood Loss: 100 Resuscitation Needed: No [place]: Stimulated, Warmed, [place] Used Provider: Ingrid Mascorro Score 1 min: 9 Score 5 min: 9 Second Stage Interventions: Reports: Second Nurse Reviewed Heart Tones, Pushing Effectively, Pushing, McRobert's Position Delivery Comments (Free Text/Narrative):: 08/19/20 This 29 year old G7 now P5 who is 37 2/7 weeks delivered via at 2211 in ROP a viable female infant. The cried spontaneously and was placed on mother's chest where she was dried and stimulated. Apgars of 9&9 all for color. Three vessel cord. delayed cord clamping and active management of the third stage was employed. The placenta was expressed spontaneously intact, There was a first degree tear of the perineum which was repair in standard fashion with 3-0 Vicryl. No other lacerations were found of the cervix, vagina, or rectum. EBL 100cc Mother and baby to post in stable condition first stage [id number] second stage [id number] third stage [id number] weight 6-1 Induction Criteria - Castillo Score Castillo Score Dilation: Closed Castillo Score Effacement: 40-50% Castillo Score Infant's Station: -3 Castillo Score Consistency: Soft Castillo Score Cervix Position: Midposition Castillo Score Total: 4 Castillo Score Presenting Part: Reports: Cephalic - Induction Gestational Age >/= 39 wks: No Medical Indication: ICP Estimated Pelvis: Reports: Adequate Reassuring Monitoring Strip: Yes Absence of Tachy Systole: Yes - Augmentation Estimated Pelvis: Reports: Adequate Weight Estimated:: Reports: AGA Reassuring Monitoring Strip: Yes Absence of Tachy Systole: Yes - General Info Date of Service: 08/19/20 Admission Dx/Problem (Free Text): Patient Status Order with Admit Dx/Problem 08/19/20 08:25 Patient Status [ADT] Routine Admission Diagnosis/Problem Admission Diagnosis/Problem High risk Functional Status: Reports: Pain Controlled - Review of Systems General: Reports: No Symptoms HEENT: Reports: No Symptoms Pulmonary: Reports: No Symptoms Cardiovascular: Reports: No Symptoms Gastrointestinal: Reports: No Symptoms Genitourinary: Reports: No Symptoms Musculoskeletal: Reports: No Symptoms Skin: Reports: No Symptoms Neurological: Reports: No Symptoms Psychiatric: Reports: No Symptoms - Patient Data Vitals - Most Recent: Last Vital Signs Temp 97.5 F 08/19/20 20:08 Pulse 71 08/19/20 19:10 Resp 18 08/19/20 19:10 BP 113/62 08/19/20 19:10 Pulse Ox 98 08/19/20 19:10 Weight - Most Recent: 195 lb I&O - Last 24 Hours: Intake & Output 08/19/20 08/19/20 08/19/20 06:59 14:59 22:59 Intake Total 1350 Balance 1350 Lab Results Last 24 Hours: Laboratory Results - last 24 hr 08/19/20 08/19/20 08/19/20 Range/Units 07:06 08:40 08:40 WBC 8.6 (4.5-11.0) K/uL RBC 3.80 (3.30-5.50) M/uL Hgb 12.1 (12.0-15.0) g/dL Hct 35.3 L (36.0-48.0) % MCV 93 (80-98) fL MCH 32 H (27-31) pg MCHC 34 (32-36) % Plt Count 171 (150-400) K/uL Neut % (Auto) 74 H (36-66) % Lymph % (Auto) 17 L (24-44) % [place] % (Auto) 7 H (2-6) % Eos % (Auto) 2 (2-4) % Baso % (Auto) 0 (0-1) % Sodium 141 (140-148) mmol/L Potassium 3.7 (3.6-5.2) mmol/L Chloride 105 (100-108) mmol/L Carbon Dioxide 24 (21-32) mmol/L Anion Gap 12.5 (5.0-14.0) mmol/L BUN 8 (7-18) mg/dL Creatinine 0.6 (0.6-1.0) mg/dL Est Cr Clr Drug Dosing 122.25 mL/min Estimated GFR (MDRD) > 60 (>60) Glucose 80 (74-106) mg/dL Calcium 8.7 (8.5-10.1) mg/dL Total Bilirubin 0.4 (0.2-1.0) mg/dL AST 10 L (15-37) U/L ALT 16 (12-78) U/L Alkaline Phosphatase 132 H (46-116) U/L Total Protein 6.4 (6.4-8.2) g/dL Albumin 2.8 L (3.4-5.0) g/dL Globulin 3.6 H (2.3-3.5) g/dL Albumin/Globulin Ratio 0.8 L (1.2-2.2) Urine Color Yellow (YELLOW) Urine Appearance Cloudy A (CLEAR) Urine pH 7.0 (5.0-8.0) Ur Specific [place] >= 1.030 (1.008-1.030) Urine Protein Trace H (NEGATIVE) mg/dL Urine Glucose (UA) Negative (NEGATIVE) mg/dL Urine Ketones Negative (NEGATIVE) mg/dL Urine Occult Blood Negative (NEGATIVE) Urine Nitrite Negative (NEGATIVE) Urine Bilirubin Negative (NEGATIVE) Urine Urobilinogen 0.2 (0.2-1.0) EU/dL Ur Leukocyte Esterase Small H (NEGATIVE) Urine RBC 0-5 (0-5) Urine WBC 75-100 H (0-5) Ur Epithelial Cells Moderate Amorphous Sediment Not seen Urine Bacteria Many Urine Mucus Many Influenza Type A RNA (NEGATIVE) RSV RNA (INAAT) (NEGATIVE) Influenza Type B RNA (NEGATIVE) SARS-CoV-2 RNA ([place]) (NEGATIVE) 08/19/20 Range/Units 09:28 WBC (4.5-11.0) K/uL RBC (3.30-5.50) M/uL Hgb (12.0-15.0) g/dL Hct (36.0-48.0) % MCV (80-98) fL MCH (27-31) pg MCHC (32-36) % Plt Count (150-400) K/uL Neut % (Auto) (36-66) % Lymph % (Auto) (24-44) % [place] % (Auto) (2-6) % Eos % (Auto) (2-4) % Baso % (Auto) (0-1) % Sodium (140-148) mmol/L Potassium (3.6-5.2) mmol/L Chloride (100-108) mmol/L Carbon Dioxide (21-32) mmol/L Anion Gap (5.0-14.0) mmol/L BUN (7-18) mg/dL Creatinine (0.6-1.0) mg/dL Est Cr Clr Drug Dosing mL/min Estimated GFR (MDRD) (>60) Glucose (74-106) mg/dL Calcium (8.5-10.1) mg/dL Total Bilirubin (0.2-1.0) mg/dL AST (15-37) U/L ALT (12-78) U/L Alkaline Phosphatase (46-116) U/L Total Protein (6.4-8.2) g/dL Albumin (3.4-5.0) g/dL Globulin (2.3-3.5) g/dL Albumin/Globulin Ratio (1.2-2.2) Urine Color (YELLOW) Urine Appearance (CLEAR) Urine pH (5.0-8.0) Ur Specific [place] (1.008-1.030) Urine Protein (NEGATIVE) mg/dL Urine Glucose (UA) (NEGATIVE) mg/dL Urine Ketones (NEGATIVE) mg/dL Urine Occult Blood (NEGATIVE) Urine Nitrite (NEGATIVE) Urine Bilirubin (NEGATIVE) Urine Urobilinogen (0.2-1.0) EU/dL Ur Leukocyte Esterase (NEGATIVE) Urine RBC (0-5) Urine WBC (0-5) Ur Epithelial Cells Amorphous Sediment Urine Bacteria Urine Mucus Influenza Type A RNA Negative (NEGATIVE) RSV RNA (INAAT) Negative (NEGATIVE) Influenza Type B RNA Negative (NEGATIVE) SARS-CoV-2 RNA ([place]) Negative (NEGATIVE) Med Orders - Current: Current Medications Acetaminophen (Acetaminophen 325 Mg Tab, 50 Tab Bulk Bottle) 325 - 650 mg PO Q4H PRN PRN Reason: Pain Emollient Ointment (Lanolin 100% Cream 40 Gm Tube) 1 gm TOP ASDIRECTED ONE Stop: 08/19/20 22:44 Ephedrine Sulfate (Ephedrine 50 Mg/Ml Sdv) 10 mg IVPUSH ASDIRECTED PRN PRN Reason: Hypotension Hydrocortisone (Hydrocortisone 2.5% Crm 30 Gm Tube) 1 gm TOP ASDIRECTED PRN PRN Reason: Itching Oxytocin/Sodium Chloride (Pitocin In Ns 20 Units/1,000 Ml) 20 units in 1,000 mls @ 6 mls/hr IV TITRATE DANIEL; Protocol Last Titration: 08/19/20 20:07 Dose: 9 munits/min, 27 mls/hr Documented by: Sodium Chloride (Normal Saline) 1,000 mls @ 999 mls/hr IV ASDIRECTED DANIEL Ibuprofen (Ibuprofen 200 Mg Tab, 24 Tab Bulk Bottle) 600 mg PO Q6H PRN PRN Reason: Pain Sodium Chloride (Sodium Chloride 0.9% 10 Ml Syringe) 10 ml FLUSH ASDIRECTED PRN PRN Reason: Keep Vein Open Discontinued Medications Benzocaine (Benzocaine 20% Top [place] 56 Gm Bottle) 0 gm TOP Q4H ONE Stop: 08/19/20 22:44 Carboprost Tromethamine (Carboprost Tromethamine 250 Mcg/1 Ml Amp) Confirm Administered Dose 250 mcg .ROUTE .STK-MED ONE Stop: 08/19/20 22:02 Fentanyl (Fentanyl 100 Mcg/2 Ml Sdv) 50 mcg IVPUSH ONETIME ONE Stop: 08/19/20 17:11 Last Admin: 08/19/20 17:26 Dose: 50 mcg Documented by: Fentanyl (Fentanyl 100 Mcg/2 Ml Sdv) 50 mcg IVPUSH ONETIME ONE Stop: 08/19/20 19:29 Last Admin: 08/19/20 19:40 Dose: 50 mcg Documented by: Fentanyl (Fentanyl 100 Mcg/2 Ml Sdv) Confirm Administered Dose 100 mcg .ROUTE .STK-MED ONE Stop: 08/19/20 22:18 Lactated Ringer's (Ringers, Lactated) 1,000 mls @ 999 mls/hr IV .BOLUS ONE Stop: 08/19/20 13:27 Lidocaine HCl (Lidocaine 1% 50 Ml Mdv) Confirm Administered Dose 50 ml .ROUTE .STK-MED ONE Stop: 08/19/20 22:16 Methylergonovine Maleate (Methylergonovine 0.2 Mg/1 Ml Amp) Confirm Administered Dose 0.2 mg .ROUTE .STK-MED ONE Stop: 08/19/20 22:02 Misoprostol (Misoprostol 50 Mcg (1/2 Of 100 Mcg) Tab) 50 mcg VAG ONETIME ONE Stop: 08/19/20 08:31 Last Admin: 08/19/20 08:07 Dose: 50 mcg Documented by: Misoprostol (Misoprostol 200 Mcg Tab) Confirm Administered Dose 800 mcg .ROUTE .STK-MED ONE Stop: 08/19/20 22:02 Last Admin: 08/19/20 22:45 Dose: Not Given Documented by: Sabrina Patino ([place] Medicated Pads 100/Jar) 1 pad TOP ASDIRECTED ONE Stop: 08/19/20 22:44 - Exam General: Alert, Oriented HEENT: Pupils Equal Neck: Supple Lungs: Clear to Auscultation, Normal Respiratory Effort Cardiovascular: Regular Rate GI/Abdominal Exam: Soft, Non-Tender (Female) Exam: Normal External Exam, Cervical Dilatation, Enlarged Uterus, Vaginal Bleeding Back Exam: Normal Inspection, Full Range of Motion Extremities: Normal Range of Motion, No Pedal Edema, Normal Capillary Refill Skin: Warm, Dry Wound/Incisions: Healing Well Neurological: No New Focal Deficit Psy/Mental Status: Alert, Normal Affect, Normal Mood - Problem List & Annotations (1) High-risk SNOMED Code(s): 38572220 Code(s): O09.90 - SUPERVISION OF HIGH RISK , UNSP, UNSP TRIMESTER Status: Acute Priority: High Current Visit: Yes Qualifiers: Trimester: third trimester Qualified Code(s): O09.93 - Supervision of high risk , unspecified, third trimester (2) Cough SNOMED Code(s): 56909154 Code(s): R05 - COUGH Status: Acute Current Visit: Yes (3) Tobacco abuse disorder SNOMED Code(s): 552828891 Code(s): Z72.0 - TOBACCO USE Status: Acute Current Visit: Yes (4) SNOMED Code(s): 75345982 Code(s): Z34.90 - ENCNTR FOR SUPRVSN OF NORMAL , UNSP, UNSP TRIMESTER Status: Acute Current Visit: No Qualifiers: Weeks of gestation: 37 weeks Qualified Code(s): Z3A.37 - 37 weeks gestation of (5) Intrahepatic cholestasis of in third trimester SNOMED Code(s): 633081828, 509026599 Code(s): O26.613 - LIVER AND BILIARY TRACT DISORD IN , THIRD TRIMESTER; K83.1 - OBSTRUCTION OF BILE DUCT Status: Acute Priority: High Current Visit: Yes (6) Spontaneous vaginal delivery SNOMED Code(s): 470196684 Code(s): O80 - ENCOUNTER FOR FULL-TERM UNCOMPLICATED DELIVERY Status: Acute Current Visit: Yes - Problem List Review Problem List Initiated/Reviewed/Updated: Yes - My Orders Last 24 Hours: My Active Orders 08/19/20 06:30 BPP w NST [US] Routine 08/19/20 08:25 Communication Order [RC] ASDIRECTED Communication Order [RC] ASDIRECTED Communication Order [RC] ASDIRECTED Communication Order [RC] ASDIRECTED May Shower [RC] ASDIRECTED Notify Provider [RC] PRN Notify Provider [RC] PRN Notify Provider [RC] STAT Up ad [place] [RC] ASDIRECTED Vital Signs [RC] PER UNIT ROUTINE Sodium Chloride 0.9% [Saline Flush] 10 ml FLUSH ASDIRECTED PRN DVT/VTE Prophylaxis Reflex [OM.PC] Routine Peripheral IV Insertion Adult [OM.PC] Routine Resuscitation Status Routine 08/19/20 08:27 Antiembolic Devices [RC] .Routine Heart Tones [RC] CONTINUOUS Peripheral IV Care [RC] . DIRECTED VTE/DVT Education [RC] Click to Edit 08/19/20 12:27 Communication Order [RC] ASDIRECTED Local Anesthetic Infusion Pump [RC] ASDIRECTED PCEA Epidural [RC] ASDIRECTED PCEA Epidural [RC] ASDIRECTED Urinary Catheter Assessment [RC] ASDIRECTED ePHEDrine [ePHEDrine sulfate] 10 mg IVPUSH ASDIRECTED PRN Epidural Catheter Management [OM.PC] Urgent 08/19/20 12:30 Insert Urinary Catheter [OM.PC] ASDIRECTED Oxytocin/Normal Saline [Pitocin in NS 20 Units/1,000 ML] 20 units in 1,000 ml IV TITRATE 08/19/20 13:45 Sodium Chloride 0.9% [Normal Saline] 1,000 ml IV ASDIRECTED 08/19/20 Dinner Regular Diet [DIET] 08/19/20 22:43 Patient Status [ADT] Routine Vital Signs [RC] PFP Acetaminophen [Tylenol Bulk Bottle] 325 - 650 mg PO Q4H PRN Hydrocortisone [Proctozone-HC 2.5% Crm] 1 gm TOP ASDIRECTED PRN Ibuprofen [Motrin Bulk Bottle] 600 mg PO Q6H PRN 08/20/20 05:11 CBC W/O DIFF,HEMOGRAM [HEME] AM - Assessment Assessment:: 08/19/20 29 year old 37 2/7 weeks induced for ICP, without complications - Plan Plan:: 08/19/20 29 year old with ICP who is 37 weeks gestation with an unripe cervix Plan this morning Miso 50 mcg for cervical ripening covid test pending will reassess at noon and discuss pitocin challenge. this maybe a multi-day process with frequent assessment the mom feels like we are overreacting. I discussed risks and benefits with remaining and her riask for stillbirth is quiet high with ICP. 08/19/20 Routine post cares 24-48 hour stay support
[2020-08-20] MEDS: fentaNYL 100 MCG/2 ML SDV IVPUSH ONE (09:30)
[2020-08-20] MEDS: Lidocaine 1% 50 ML MDV INJECT ONE (09:30)
--- NOTE | 2020-08-20 10:21 | PCM.PNPP ---
- General Info Date of Service: 08/20/20 (PPD 1) Admission Dx/Problem (Free Text): Patient Status Order with Admit Dx/Problem 08/19/20 08:25 Patient Status [ADT] Routine Admission Diagnosis/Problem Admission Diagnosis/Problem High risk Functional Status: Reports: Pain Controlled - Review of Systems General: Reports: No Symptoms HEENT: Reports: No Symptoms Pulmonary: Reports: No Symptoms Cardiovascular: Reports: No Symptoms Gastrointestinal: Reports: No Symptoms Genitourinary: Reports: No Symptoms Musculoskeletal: Reports: No Symptoms Skin: Reports: No Symptoms Neurological: Reports: No Symptoms Psychiatric: Reports: No Symptoms - General Info Date of Service: 08/20/20 - Patient Data Vital Signs - Most Recent: Last Vital Signs Temp 97.3 F 08/20/20 07:32 Pulse 65 08/20/20 07:32 Resp 16 08/20/20 07:32 BP 100/54 L 08/20/20 07:32 Pulse Ox 96 08/20/20 07:32 Weight - Most Recent: 195 lb I&O - Last 24 Hours: Intake & Output 08/19/20 08/20/20 08/20/20 22:59 06:59 14:59 Intake Total 250 Balance 250 Lab Results - Last 24 Hours: Laboratory Results - last 24 hr 08/19/20 08/20/20 Range/Units 09:28 06:31 WBC 12.0 H (4.5-11.0) K/uL RBC 3.69 (3.30-5.50) M/uL Hgb 11.3 L (12.0-15.0) g/dL Hct 34.3 L (36.0-48.0) % MCV 93 (80-98) fL MCH 31 (27-31) pg MCHC 33 (32-36) % Plt Count 172 (150-400) K/uL Influenza Type A RNA Negative (NEGATIVE) RSV RNA (INAAT) Negative (NEGATIVE) Influenza Type B RNA Negative (NEGATIVE) SARS-CoV-2 RNA ([place]) Negative (NEGATIVE) Med Orders - Current: Current Medications Acetaminophen (Acetaminophen 325 Mg Tab, 50 Tab Bulk Bottle) 325 - 650 mg PO Q4H PRN PRN Reason: Pain Last Admin: 08/19/20 23:17 Dose: 325 mg Documented by: Ephedrine Sulfate (Ephedrine 50 Mg/Ml Sdv) 10 mg IVPUSH ASDIRECTED PRN PRN Reason: Hypotension Hydrocortisone (Hydrocortisone 2.5% Crm 30 Gm Tube) 1 gm TOP ASDIRECTED PRN PRN Reason: Itching Oxytocin/Sodium Chloride (Pitocin In Ns 20 Units/1,000 Ml) 20 units in 1,000 mls @ 6 mls/hr IV TITRATE DANIEL; Protocol Last Titration: 08/19/20 22:16 Dose: 333 munits/min, 999 mls/hr Documented by: Sodium Chloride (Normal Saline) 1,000 mls @ 999 mls/hr IV ASDIRECTED DANIEL Ibuprofen (Ibuprofen 200 Mg Tab, 24 Tab Bulk Bottle) 600 mg PO Q6H PRN PRN Reason: Pain Last Admin: 08/19/20 23:17 Dose: 600 mg Documented by: Sodium Chloride (Sodium Chloride 0.9% 10 Ml Syringe) 10 ml FLUSH ASDIRECTED PRN PRN Reason: Keep Vein Open Discontinued Medications Benzocaine (Benzocaine 20% Top [place] 56 Gm Bottle) 0 gm TOP Q4H ONE Stop: 08/19/20 22:44 Last Admin: 08/19/20 23:18 Dose: 1 applic Documented by: Carboprost Tromethamine (Carboprost Tromethamine 250 Mcg/1 Ml Amp) Confirm Administered Dose 250 mcg .ROUTE .STK-MED ONE Stop: 08/19/20 22:02 Last Admin: 08/19/20 23:16 Dose: Not Given Documented by: Emollient Ointment (Lanolin 100% Cream 40 Gm Tube) 1 gm TOP ASDIRECTED ONE Stop: 08/19/20 22:44 Last Admin: 08/19/20 23:18 Dose: 1 applic Documented by: Fentanyl (Fentanyl 100 Mcg/2 Ml Sdv) 50 mcg IVPUSH ONETIME ONE Stop: 08/19/20 17:11 Last Admin: 08/19/20 17:26 Dose: 50 mcg Documented by: Fentanyl (Fentanyl 100 Mcg/2 Ml Sdv) 50 mcg IVPUSH ONETIME ONE Stop: 08/19/20 19:29 Last Admin: 08/19/20 19:40 Dose: 50 mcg Documented by: Fentanyl (Fentanyl 100 Mcg/2 Ml Sdv) Confirm Administered Dose 100 mcg .ROUTE .STK-MED ONE Stop: 08/19/20 22:18 Last Admin: 08/19/20 22:35 Dose: 100 mcg Documented by: Fentanyl (Fentanyl 100 Mcg/2 Ml Sdv) 100 mcg IVPUSH ONETIME ONE Stop: 08/19/20 22:16 Lactated Ringer's (Ringers, Lactated) 1,000 mls @ 999 mls/hr IV .BOLUS ONE Stop: 08/19/20 13:27 Last Admin: 08/20/20 09:29 Dose: Not Given Documented by: Lidocaine HCl (Lidocaine 1% 50 Ml Mdv) Confirm Administered Dose 50 ml .ROUTE .STK-MED ONE Stop: 08/19/20 22:16 Last Admin: 08/19/20 22:35 Dose: 50 ml Documented by: Lidocaine HCl (Lidocaine 1% 50 Ml Mdv) 50 ml INJECT ONETIME ONE Stop: 08/19/20 22:16 Methylergonovine Maleate (Methylergonovine 0.2 Mg/1 Ml Amp) Confirm Administered Dose 0.2 mg .ROUTE .STK-MED ONE Stop: 08/19/20 22:02 Last Admin: 08/19/20 23:16 Dose: Not Given Documented by: Misoprostol (Misoprostol 50 Mcg (1/2 Of 100 Mcg) Tab) 50 mcg VAG ONETIME ONE Stop: 08/19/20 08:31 Last Admin: 08/19/20 08:07 Dose: 50 mcg Documented by: Misoprostol (Misoprostol 200 Mcg Tab) Confirm Administered Dose 800 mcg .ROUTE .STK-MED ONE Stop: 08/19/20 22:02 Last Admin: 08/19/20 22:45 Dose: Not Given Documented by: Sabrina Patino (Sabrina Patino Medicated Pads 100/Jar) 1 pad TOP ASDIRECTED ONE Stop: 08/19/20 22:44 Last Admin: 08/19/20 23:18 Dose: 1 applic Documented by: - Interaction Disposition, : [place] in Room with Family Interaction: Not Interacting Infant Feeding: Attempted ; Nursed Fair/Poor, Difficulty with Latch-on Support Person: Significant Other - Recovery Exam Fundal Tone: Firms with Massage Fundal Level: At Umbilicus Fundal Placement: Right Lochia Amount: Moderate Lochia Color: [place]ra/Red Perineum Description: Edematous Episiotomy/Laceration: Approximated Bladder Status: Voiding Urinary Elimination: Voided - Exam General: Alert, Oriented HEENT: Pupils Equal Neck: Supple Lungs: Clear to Auscultation, Normal Respiratory Effort Cardiovascular: Regular Rate, Regular Rhythm GI/Abdominal Exam: Soft, Non-Tender Extremities: No Pedal Edema, Normal Capillary Refill Skin: Warm, Dry, Intact Wound/Incisions: Healing Well Neurological: No New Focal Deficit Psy/Mental Status: Alert, Normal Affect, Normal Mood - Problem List & Annotations (1) High-risk SNOMED Code(s): 68249461 Code(s): O09.90 - SUPERVISION OF HIGH RISK , UNSP, UNSP TRIMESTER Status: Acute Priority: High Current Visit: Yes Qualifiers: Trimester: third trimester Qualified Code(s): O09.93 - Supervision of high risk , unspecified, third trimester (2) Cough SNOMED Code(s): 15592787 Code(s): R05 - COUGH Status: Acute Current Visit: Yes (3) Tobacco abuse disorder SNOMED Code(s): 611987345 Code(s): Z72.0 - TOBACCO USE Status: Acute Current Visit: Yes (4) SNOMED Code(s): 37063521 Code(s): Z34.90 - ENCNTR FOR SUPRVSN OF NORMAL , UNSP, UNSP TRIMESTER Status: Acute Current Visit: No Qualifiers: Weeks of gestation: 37 weeks Qualified Code(s): Z3A.37 - 37 weeks gestation of (5) Intrahepatic cholestasis of in third trimester SNOMED Code(s): 805704772, 463745289 Code(s): O26.613 - LIVER AND BILIARY TRACT DISORD IN , THIRD TRIMESTER; K83.1 - OBSTRUCTION OF BILE DUCT Status: Acute Priority: High Current Visit: Yes (6) Spontaneous vaginal delivery SNOMED Code(s): 508070142 Code(s): O80 - ENCOUNTER FOR FULL-TERM UNCOMPLICATED DELIVERY Status: Acute Current Visit: Yes - Problem List Review Problem List Initiated/Reviewed/Updated: Yes - My Orders Last 24 Hours: My Active Orders 08/19/20 12:27 ePHEDrine [ePHEDrine sulfate] 10 mg IVPUSH ASDIRECTED PRN Epidural Catheter Management [OM.PC] Urgent 08/19/20 12:30 Insert Urinary Catheter [OM.PC] ASDIRECTED Oxytocin/Normal Saline [Pitocin in NS 20 Units/1,000 ML] 20 units in 1,000 ml IV TITRATE 08/19/20 13:45 Sodium Chloride 0.9% [Normal Saline] 1,000 ml IV ASDIRECTED 08/19/20 Dinner Regular Diet [DIET] 08/19/20 22:43 Patient Status [ADT] Routine Vital Signs [RC] PFP Acetaminophen [Tylenol Bulk Bottle] 325 - 650 mg PO Q4H PRN Hydrocortisone [Proctozone-HC 2.5% Crm] 1 gm TOP ASDIRECTED PRN Ibuprofen [Motrin Bulk Bottle] 600 mg PO Q6H PRN - Assessment Assessment:: 08/19/20 29 year old 37 2/7 weeks induced for ICP, without complications 08/20/20 Mood happy Breast soft, having problems with latch cramps mild, flow light. repair nontender hgb 11.3 - Plan Plan:: 08/19/20 29 year old with ICP who is 37 weeks gestation with an unripe cervix Plan this morning Miso 50 mcg for cervical ripening covid test pending will reassess at noon and discuss pitocin challenge. this maybe a multi-day process with frequent assessment the mom feels like we are overreacting. I discussed risks and benefits with remaining and her riask for stillbirth is quiet high with ICP. 08/19/20 Routine post cares 24-48 hour stay support 08/20/20 Continue routine cares home tomorrow
[2020-08-20] MEDS: Pantoprazole 40 MG Tab.CR PO SCH (18:03)
[2020-08-21] MEDS: Pantoprazole 40 MG Tab.CR PO SCH (08:08)
--- NOTE | 2020-08-21 09:40 | PCM.PNPP ---
- General Info Date of Service: 08/21/20 Functional Status: Reports: Pain Controlled - Review of Systems General: Reports: No Symptoms HEENT: Reports: No Symptoms Pulmonary: Reports: No Symptoms Cardiovascular: Reports: No Symptoms Gastrointestinal: Reports: Other (hemorrhoid discomfort, also heartburn) Genitourinary: Reports: No Symptoms Musculoskeletal: Reports: No Symptoms Skin: Reports: No Symptoms Neurological: Reports: No Symptoms Psychiatric: Reports: No Symptoms - General Info Date of Service: 08/21/20 (PPD 2 D/C) - Patient Data Vital Signs - Most Recent: Last Vital Signs Temp 96.4 F L 08/21/20 07:39 Pulse 81 08/21/20 07:39 Resp 16 08/21/20 07:39 BP 125/68 08/21/20 07:39 Pulse Ox 99 08/21/20 07:39 Weight - Most Recent: 195 lb I&O - Last 24 Hours: Intake & Output 08/20/20 08/21/20 08/21/20 22:59 06:59 14:59 Intake Total 800 1000 480 Balance 800 1000 480 Med Orders - Current: Current Medications Acetaminophen (Acetaminophen 325 Mg Tab, 50 Tab Bulk Bottle) 325 - 650 mg PO Q4H PRN PRN Reason: Pain Last Admin: 08/19/20 23:17 Dose: 325 mg Documented by: Ephedrine Sulfate (Ephedrine 50 Mg/Ml Sdv) 10 mg IVPUSH ASDIRECTED PRN PRN Reason: Hypotension Hydrocortisone (Hydrocortisone 2.5% Crm 30 Gm Tube) 1 gm TOP ASDIRECTED PRN PRN Reason: Itching Oxytocin/Sodium Chloride (Pitocin In Ns 20 Units/1,000 Ml) 20 units in 1,000 mls @ 6 mls/hr IV TITRATE DANIEL; Protocol Last Titration: 08/19/20 22:16 Dose: 333 munits/min, 999 mls/hr Documented by: Sodium Chloride (Normal Saline) 1,000 mls @ 999 mls/hr IV ASDIRECTED DANIEL Ibuprofen (Ibuprofen 200 Mg Tab, 24 Tab Bulk Bottle) 600 mg PO Q6H PRN PRN Reason: Pain Last Admin: 08/19/20 23:17 Dose: 600 mg Documented by: Pantoprazole Sodium (Pantoprazole 40 Mg Tab.Cr) 40 mg PO DAILY DANIEL Last Admin: 08/21/20 08:08 Dose: 40 mg Documented by: Sodium Chloride (Sodium Chloride 0.9% 10 Ml Syringe) 10 ml FLUSH ASDIRECTED PRN PRN Reason: Keep Vein Open Discontinued Medications Benzocaine (Benzocaine 20% Top [place] 56 Gm Bottle) 0 gm TOP Q4H ONE Stop: 08/19/20 22:44 Last Admin: 08/19/20 23:18 Dose: 1 applic Documented by: Carboprost Tromethamine (Carboprost Tromethamine 250 Mcg/1 Ml Amp) Confirm Administered Dose 250 mcg .ROUTE .STK-MED ONE Stop: 08/19/20 22:02 Last Admin: 08/19/20 23:16 Dose: Not Given Documented by: Emollient Ointment (Lanolin 100% Cream 40 Gm Tube) 1 gm TOP ASDIRECTED ONE Stop: 08/19/20 22:44 Last Admin: 08/19/20 23:18 Dose: 1 applic Documented by: Fentanyl (Fentanyl 100 Mcg/2 Ml Sdv) 50 mcg IVPUSH ONETIME ONE Stop: 08/19/20 17:11 Last Admin: 08/19/20 17:26 Dose: 50 mcg Documented by: Fentanyl (Fentanyl 100 Mcg/2 Ml Sdv) 50 mcg IVPUSH ONETIME ONE Stop: 08/19/20 19:29 Last Admin: 08/19/20 19:40 Dose: 50 mcg Documented by: Fentanyl (Fentanyl 100 Mcg/2 Ml Sdv) Confirm Administered Dose 100 mcg .ROUTE .STK-MED ONE Stop: 08/19/20 22:18 Last Admin: 08/19/20 22:35 Dose: 100 mcg Documented by: Fentanyl (Fentanyl 100 Mcg/2 Ml Sdv) 100 mcg IVPUSH ONETIME ONE Stop: 08/19/20 22:16 Last Admin: 08/19/20 22:17 Dose: 100 mcg Documented by: Lactated Ringer's (Ringers, Lactated) 1,000 mls @ 999 mls/hr IV .BOLUS ONE Stop: 08/19/20 13:27 Last Admin: 08/20/20 09:29 Dose: Not Given Documented by: Lidocaine HCl (Lidocaine 1% 50 Ml Mdv) Confirm Administered Dose 50 ml .ROUTE .STK-MED ONE Stop: 08/19/20 22:16 Last Admin: 08/19/20 22:35 Dose: 50 ml Documented by: Lidocaine HCl (Lidocaine 1% 50 Ml Mdv) 50 ml INJECT ONETIME ONE Stop: 08/19/20 22:16 Last Admin: 08/19/20 22:15 Dose: 50 ml Documented by: Methylergonovine Maleate (Methylergonovine 0.2 Mg/1 Ml Amp) Confirm Administered Dose 0.2 mg .ROUTE .STK-MED ONE Stop: 08/19/20 22:02 Last Admin: 08/19/20 23:16 Dose: Not Given Documented by: Misoprostol (Misoprostol 50 Mcg (1/2 Of 100 Mcg) Tab) 50 mcg VAG ONETIME ONE Stop: 08/19/20 08:31 Last Admin: 08/19/20 08:07 Dose: 50 mcg Documented by: Misoprostol (Misoprostol 200 Mcg Tab) Confirm Administered Dose 800 mcg .ROUTE .STK-MED ONE Stop: 08/19/20 22:02 Last Admin: 08/19/20 22:45 Dose: Not Given Documented by: Sabrina Patino (Witch Carey Medicated Pads 100/Jar) 1 pad TOP ASDIRECTED ONE Stop: 08/19/20 22:44 Last Admin: 08/19/20 23:18 Dose: 1 applic Documented by: - Interaction Disposition, : [place] in Room with Family Interaction: Holding Infant Feeding: Breastfed ; Nursed Well, Continues to Breastfeed, Encouraged to Breastfeed Support Person: Significant Other - Recovery Exam Fundal Tone: Firm Fundal Level: 1 Fingerbreadths Below Umbilicus Fundal Placement: Midline Lochia Amount: Small Lochia Color: Rubra/Red Perineum Description: Intact, Minimal Bruising/Swelling Episiotomy/Laceration: Approximated Bladder Status: Voiding Urinary Elimination: Voided - Exam General: Alert, Oriented HEENT: Pupils Equal Neck: Supple Lungs: Normal Respiratory Effort Cardiovascular: Regular Rate GI/Abdominal Exam: Soft, Non-Tender Extremities: Normal Range of Motion, No Pedal Edema, Normal Capillary Refill Skin: Warm, Dry Wound/Incisions: Healing Well Neurological: No New Focal Deficit Psy/Mental Status: Alert, Normal Affect, Normal Mood - Problem List & Annotations (1) High-risk SNOMED Code(s): 88732167 Code(s): O09.90 - SUPERVISION OF HIGH RISK , UNSP, UNSP TRIMESTER Status: Acute Priority: High Current Visit: Yes Qualifiers: Trimester: third trimester Qualified Code(s): O09.93 - Supervision of high risk , unspecified, third trimester (2) Cough SNOMED Code(s): 41061258 Code(s): R05 - COUGH Status: Acute Current Visit: Yes (3) Tobacco abuse disorder SNOMED Code(s): 594659863 Code(s): Z72.0 - TOBACCO USE Status: Acute Current Visit: Yes (4) SNOMED Code(s): 32840044 Code(s): Z34.90 - ENCNTR FOR SUPRVSN OF NORMAL , UNSP, UNSP TRIMESTER Status: Acute Current Visit: No Qualifiers: Weeks of gestation: 37 weeks Qualified Code(s): Z3A.37 - 37 weeks gestation of (5) Intrahepatic cholestasis of in third trimester SNOMED Code(s): 283559090, 362600980 Code(s): O26.613 - LIVER AND BILIARY TRACT DISORD IN , THIRD TRIMESTER; K83.1 - OBSTRUCTION OF BILE DUCT Status: Acute Priority: High Current Visit: Yes (6) Spontaneous vaginal delivery SNOMED Code(s): 628294759 Code(s): O80 - ENCOUNTER FOR FULL-TERM UNCOMPLICATED DELIVERY Status: Acute Current Visit: Yes - Problem List Review Problem List Initiated/Reviewed/Updated: Yes - My Orders Last 24 Hours: My Active Orders 08/20/20 17:45 Pantoprazole [ProTONIX] 40 mg PO DAILY - Assessment Assessment:: 08/19/20 29 year old 37 2/7 weeks induced for ICP, without complications 08/20/20 Mood happy Breast soft, having problems with latch cramps mild, flow light. repair nontender hgb 11.3 08/21/20 Happy with baby and delivery breast full nontender cramp mild and flow light repair nontender voiding no BM yet wants to go home - Plan Plan:: 08/19/20 29 year old with ICP who is 37 weeks gestation with an unripe cervix Plan this morning Miso 50 mcg for cervical ripening covid test pending will reassess at noon and discuss pitocin challenge. this maybe a multi-day process with frequent assessment the mom feels like we are overreacting. I discussed risks and benefits with remaining and her riask for stillbirth is quiet high with ICP. 08/19/20 Routine post cares 24-48 hour stay support 08/20/20 Continue routine cares home tomorrow 08/21/20 Home today See Melanie Cooper CNM in 6 weeks for post visit will need pelvic floor rehab
--- NOTE | 2020-08-22 09:46 | US ---
BPP w NST INDICATION: cholestasis, unstable lie. scheduled induction COMPARISON: None FINDINGS: Single live IUP in: Vertex position heart rate: 130 BPM. Biophysical profile score: 8/8. KAMERON: 24 cm. IMPRESSION: Normal biophysical profile score of 8/8. KAMERON is 24 cm
== END 2020-08-21 12:50 | disposition home or self-care (01) | DRG 805 ==
LOC: JP.OB 06:56 → EDSTATUS 14:05 → OBSVTOIN 22:11 → JP.MS 08-20 01:08
PROVIDERS: ADMIT Nurse Practitioner Family; ATTEND Nurse Practitioner Family
PROC: 10E0XZZ Delivery of Products of Conception, External Approach (ICD-10-PCS; principal; 2020-08-19)
PROC: 0U7C7ZZ Dilation of Cervix, Via Natural or Artificial Opening (ICD-10-PCS; 2020-08-19)
PROC: 10907ZC Drainage of Amniotic Fluid, Therapeutic from Products of Conception, Via Natural or Artificial Opening (ICD-10-PCS; 2020-08-19)
PROC: 3E0P7VZ Introduction of Hormone into Female Reproductive, Via Natural or Artificial Opening (ICD-10-PCS; 2020-08-19)
PROC: 0HQ9XZZ Repair Perineum Skin, External Approach (ICD-10-PCS; 2020-08-19)
DX: O26.62 Liver and biliary tract disorders in childbirth (principal); K83.1 Obstruction of bile duct; Z37.0 Single live birth; Z3A.37 37 weeks gestation of pregnancy; O70.0 First degree perineal laceration during delivery; Z72.0 Tobacco use; Z20.822 Contact with and (suspected) exposure to COVID-19
CPT/HCPCS: 0241U; 36415; 59025; 76818; 76818-26; 80053; 81001; 85025; 85027; A9270-GY; J2001; J2590; J3010

== ENCOUNTER 2022-07-07 16:02 | Emergency (ER) | payer MEDICAID ==
[2022-07-07] MEDS ORDERED: Sodium Chloride 0.9% 10 ML Syringe FLUSH PRN (17:06)
[2022-07-07] MEDS ORDERED: Meclizine 25 MG Tab PO ONE (17:07)
[2022-07-07] MEDS ORDERED: Sodium Chloride 0.9% 1,000 ML IV SCH (17:15)
== END 2022-07-07 17:23 | disposition home or self-care (01) ==
LOC: JP.ED 16:02
DX: R42 Dizziness and giddiness (principal); E66.9 Obesity, unspecified; Z68.28 Body mass index [BMI] 28.0-28.9, adult; Z72.0 Tobacco use
CPT/HCPCS: 99284

== ENCOUNTER 2023-10-25 16:15 | Emergency (ER) | payer MEDICAID ==
[2023-10-25] MEDS ORDERED: Ketorolac 30 MG/ML SDV IM ONE (17:31)
[2023-10-25] MEDS: methylPREDNISolone Sodium Succinate 125 MG/2 ML SDV IVPUSH ONE (17:48)
[2023-10-25] MEDS: HYDROmorphone 0.5 MG/0.5 ML Syringe IVPUSH ONE (17:49)
[2023-10-25] MEDS: Ketorolac 30 MG/ML SDV IVPUSH ONE (17:50)
== END 2023-10-25 18:36 | disposition home or self-care (01) ==
LOC: JP.ED 16:15
DX: M54.16 Radiculopathy, lumbar region (principal); E66.9 Obesity, unspecified; F17.210 Nicotine dependence, cigarettes, uncomplicated; Z90.49 Acquired absence of other specified parts of digestive tract; Z79.899 Other long term (current) drug therapy; Z68.28 Body mass index [BMI] 28.0-28.9, adult
CPT/HCPCS: 96374; 96375; 99283; 99284; J1170; J1885; J2919; 72110; 72110-26